=== PATIENT | female | born 1975 | race Caucasian/White ===

== ENCOUNTER 2021-10-27 07:07 | Inpatient (IN) ==
[2021-10-27 08:32] LABS: Bordetella parapertussis PCR Not Detected (NotDetected); Bordetella pertussis PCR Not Detected (NotDetected); Chlamydia pneumoniae PCR Not Detected (NotDetected); Coronavirus 229E PCR Not Detected (NotDetected); Coronavirus CoV-2 (COVID19)PCR DETECTED (NotDetected); Coronavirus HKU1 PCR Not Detected (NotDetected); Coronavirus NL63 PCR Not Detected (NotDetected); Coronavirus OC43PCR Not Detected (NotDetected); Human Metapneumovirus PCR Not Detected (NotDetected); Influenza A PCR Not Detected (NotDetected); Influenza B PCR Not Detected (NotDetected); Mycoplasma pneumoniae PCR Not Detected (NotDetected); Parainfluenza Virus 1 PCR Not Detected (NotDetected); Parainfluenza Virus 2 PCR Not Detected (NotDetected); Parainfluenza Virus 3 PCR Not Detected (NotDetected); Parainfluenza Virus 4 PCR Not Detected (NotDetected); Respiratory Syncytial VirusPCR Not Detected (NotDetected); Rhinovirus/Enterovirus PCR Not Detected (NotDetected)
[2021-10-27 08:39] LABS: Adenovirus PCR Not Detected (NotDetected)
[2021-10-27] MEDS ORDERED: ONDANSETRON INJ 2 MG/ML 2 ML VIAL IV STA (09:04)
[2021-10-27] MEDS ORDERED: SODIUM CHLORIDE 0.9% 500 ML IV ONE (09:04)
--- NOTE | 2021-10-27 09:52 | Emergency Department Note ---
History of Present Illness General Chief complaint: Cough Stated complaint: POSSIBLE COVID, BACK PAIN RAIDIATING DOWN LEGS Time Seen by Provider: 10/27/21 08:43 Source: patient Mode of arrival: ambulatory Limitations: no limitations History of Present Illness Maximum Pain Intensity: 4 This patient is a 46-year-old female who presents to the emergency department for evaluation of flulike symptoms which started 5 days ago. Patient states that she has been caring for her parents who are both COVID-19 positive. She initially developed loss of taste and smell 5 days ago. She has since developed cough, shortness of breath, vomiting, diarrhea, and body aches, especially in her hips and legs. She has had fevers. Patient has not been vaccinated against COVID-19. Home Medications Medication Instructions Recorded Confirmed Type hydrochlorothiazide 25 mg tablet 25 mg PO DAILY 10/27/21 10/27/21 History omeprazole magnesium 20 mg 20 mg PO DAILY 10/27/21 10/27/21 History tablet,delayed release (Prilosec OTC) sertraline 100 mg tablet 100 mg PO DAILY 10/27/21 10/27/21 History valsartan 160 mg tablet 160 mg PO DAILY 10/27/21 10/27/21 History Allergies Allergy/AdvReac Type Severity Reaction Status Date / Time No Known Allergies Allergy Unverified 10/27/21 10:19 Past Med/Surg History Medical History Hypertension Social History Smoking Status: Never smoker Feels Safe at Home: Yes Review of Systems A total of 10 systems reviewed and were otherwise negative Physical Exam Vital Signs Vital Signs - 24 hr 10/27/21 07:17 10/27/21 10:14 10/27/21 11:00 Temperature 37.5 C Temperature Source Temporal Artery Scan Pulse Rate 104 H 85 Pulse Rate [Apical] 89 Pulse Rhythm Regular Pulse Strength Normal Respiratory Rate 20 22 Respiratory Depth Normal Respiratory Pattern Regular Blood Pressure 148/77 H Blood Pressure [Right Arm] 127/66 Blood Pressure Mean 100 Blood Pressure Mean [Right Arm] 86 Blood Pressure Position Sitting Pulse Oximetry 92 92 92 Oxygen Delivery Method Room Air Nasal Cannula Nasal Cannula Oxygen Flow Rate 2 4 Sepsis Recent Fever Within 48 Hours No Sepsis New/Unexplained Change in Mental Status N/A Sepsis Action Taken by Nursing No Action Required VITALS: Vitals are noted on the nurse's note and reviewed by myself. GENERAL: This is a 46-year-old female, in mild distress. SKIN: The skin was without rashes. EARS: External auditory canals clear, tympanic membranes pearly bethea without erythema or effusion bilaterally. EYES: Pupils equal round and reactive to light and accommodation. NOSE: Patent, turbinates without inflammation or discharge. MOUTH: Mucous membranes moist. Tonsils are not enlarged. Pharynx without erythema or exudate. NECK: Supple without nuchal rigidity. No lymphadenopathy. HEART: Regular rate and rhythm without murmurs gallops or rubs. LUNGS: Lung sounds diminished in bilateral bases. No retractions or accessory muscle use. ABDOMEN: Positive bowel sounds x 4. Soft, nontender to palpation. EXTREMITIES: No edema of the lower extremities. NEURO: Patient was alert and oriented to person place and time. Course Consultations [facility]ations Heparin Sodium (Porcine) (Heparin Sod 5,000 Unit/0.5 Ml Vial) 5,000 units SQ Q8 AZALIA Stop: 11/26/21 13:59 Last Admin: 10/27/21 14:23 Dose: 5,000 units Documented by: [id number] Sertraline HCl (Sertraline Hcl 100 Mg Tablet) 100 mg PO DAILY AZALIA Stop: 11/26/21 11:39 Last Admin: 10/27/21 14:23 Dose: 100 mg Documented by: [id number] Valsartan (Valsartan 80 Mg Tab) 160 mg PO DAILY AZALIA Stop: 11/26/21 11:44 Last Admin: 10/27/21 14:23 Dose: 160 mg Documented by: [id number] Discontinued Medications Dexamethasone Sodium Phosphate (DexamethasonePf 10 Mg/Ml Vial) 6 mg IV NOW ONE Stop: 10/27/21 10:46 Last Admin: 10/27/21 11:38 Dose: 6 mg Documented by: [id number] Furosemide (Furosemide 40 Mg/4 Ml Vial) 40 mg IV ONE ONE Stop: 10/27/21 11:38 Last Admin: 10/27/21 12:24 Dose: 40 mg Documented by: [id number] Sodium Chloride (Nss) 500 mls @ 999 mls/hr IV .Q31M ONE Stop: 10/27/21 09:34 Last Admin: 10/27/21 10:12 Dose: 999 mls/hr Documented by: [id number] Remdesivir 200 mg/ Sodium (Chloride) 250 mls @ 125 mls/hr IV ONE STA; Protocol Stop: 10/27/21 13:35 Last Infusion: 10/27/21 15:31 Dose: 0 mls/hr Documented by: [id number] Admin: 10/27/21 12:24 Dose: 125 mls/hr Documented by: [id number] Potassium Chloride (K Darrel / Wtr) 10 meq in 100 mls @ 100 mls/hr IV Q1H AZALIA Stop: 10/27/21 14:29 Last Infusion: 10/27/21 15:31 Dose: 0 mls/hr Documented by: [id number] Admin: 10/27/21 14:24 Dose: 100 mls/hr Documented by: [id number] Infusion: 10/27/21 13:39 Dose: 100 mls/hr Documented by: [id number] Admin: 10/27/21 12:39 Dose: 100 mls/hr Documented by: [id number] Ondansetron HCl (Ondansetron Inj 2 Mg/Ml 2 Ml Vial) 4 mg IV NOW STA Stop: 10/27/21 09:05 Last Admin: 10/27/21 10:12 Dose: 4 mg Documented by: [id number] Potassium Chloride (Potassium Chloride Crtab 20 Meq Tabcr) 40 meq PO NOW STA Stop: 10/27/21 12:24 Last Admin: 10/27/21 12:39 Dose: 40 meq Documented by: [id number] Medical Decision Making Differential Diagnosis COVID-19, viral syndrome, otitis, pharyngitis, pneumonia, influenza, meningitis, urinary tract infection, sepsis, bacteremia, as well as other pathologies. Home Medications Current Medication List: was personally reviewed by me Laboratory Data Attestation: I reviewed the patient's lab results. Result diagrams: 10/27/21 11:09 10/27/21 11:09 Lab Results 10/27/21 10/27/21 10/27/21 Range/Units 07:22 09:45 09:45 WBC Cancelled RBC Cancelled Hgb Cancelled Hct Cancelled MCV Cancelled MCH Cancelled MCHC Cancelled RDW Std Deviation Cancelled RDW Coeff of Lorraine Cancelled Plt Count Cancelled MPV Cancelled Immature Gran % (Auto) Cancelled Neut % (Auto) Cancelled Lymph % (Auto) Cancelled Dade % (Auto) Cancelled Eos % (Auto) Cancelled Baso % (Auto) Cancelled Neut # (Auto) Cancelled Lymph # (Auto) Cancelled Dade # (Auto) Cancelled Eos # (Auto) Cancelled Baso # (Auto) Cancelled Immature Gran # (Auto) Cancelled Absolute Nucleated RBC Cancelled Nucleated RBC % (auto) Cancelled Neutrophils % (Manual) Cancelled Band Neutrophils % Cancelled Lymphocytes % (Manual) Cancelled Prolymphocyte % Cancelled Reactive Lymphs % (Man) Cancelled Monocytes % (Manual) Cancelled Eosinophils % (Manual) Cancelled Basophils % (Manual) Cancelled Metamyelocytes % (Man) Cancelled Myelocytes % (Man) Cancelled Promyelocytes % (Man) Cancelled Blast Cells % (Manual) Cancelled Plasma Cell % (Manual) Cancelled Other Cells % Cancelled Nucleated RBC % Cancelled Neutrophils # (Manual) Cancelled Band Neutrophils # Cancelled Total Absolute Neuts Cancelled Lymphocytes # (Manual) Cancelled Prolymphocyte # Cancelled Reactive Lymphs # Cancelled Total Abs Lymphocytes Cancelled Monocytes # (Manual) Cancelled Eosinophils # (Manual) Cancelled Basophils # (Manual) Cancelled Metamyelocytes # (Man) Cancelled Myelocytes # (Manual) Cancelled Promyelocytes # (Man) Cancelled Blast Cells # (Man) Cancelled Plasma Cell # (Manual) Cancelled Other Cells # Cancelled Nucleated RBCs # (Man) Cancelled Hypersegmented Neuts Cancelled Hyposegmented Neuts Cancelled Hypogranular Neuts Cancelled Large Granular Lymphs Cancelled # Lrg Granular Lymphs Cancelled Hairy Cells Cancelled Smudge Cells Cancelled Toxic Granulation Cancelled Toxic Vacuolation Cancelled Dohle Bodies Cancelled Kaye Rods Cancelled Platelet Estimate Cancelled Hypogranular Platelets Cancelled Clumped Platelets Cancelled Giant Platelets Cancelled Platelet Satelliting Cancelled RBC Morphology Cancelled Polychromasia Cancelled Hypochromasia Cancelled Poikilocytosis Cancelled Basophilic Stippling Cancelled Anisocytosis Cancelled Microcytosis Cancelled Macrocytosis Cancelled Spherocytes Cancelled Pappenheimer Bodies Cancelled Sickle Cells Cancelled Target Cells Cancelled Tear Drop Cells Cancelled Ovalocytes Cancelled Stomatocytes Cancelled [place] Bodies Cancelled Echinocytes Cancelled Acanthocytes (Spur) Cancelled Rouleaux Cancelled RBC Agglutinates Cancelled Schistocytes Cancelled RBC Morph Comment Cancelled Sezary Cell Cancelled PT (9.0-12.0) Seconds INR (0.9-1.1) Sodium 137 (136-145) mmol/L Potassium (3.5-5.1) mmol/L Chloride 104 (98-107) mmol/L Carbon Dioxide 27 (21-32) mmol/L Anion Gap 6.0 (3-11) BUN 11 (7-18) mg/dl Creatinine 0.82 (0.6-1.2) mg/dl Est Cr Clr Drug Dosing 124.8 ml/min Est GFR ( Amer) 98.1 ml/min Est GFR (Non-Af Amer) 84.6 ml/min BUN/Creatinine Ratio 13.8 (10-20) Glucose 129 H (70-99) mg/dl Calcium 8.8 (8.5-10.1) mg/dl Total Bilirubin 0.6 (0.2-1) mg/dl AST (15-37) U/L ALT 167 H (12-78) Alkaline Phosphatase 90 (45-117) U/L Troponin I < 0.015 (0-0.045) ng/ml Total Protein 7.7 (6.4-8.2) gm/dl Albumin 3.6 (3.4-5.0) gm/dl Globulin 4.1 H (2.5-4.0) gm/dl Albumin/Globulin Ratio 0.9 (0.9-2) Procalcitonin (0-0.5) ng/ml Adenovirus (PCR) Not Detected (NotDetected) Anaplasma Smear Babesia Smear B. pertussis DNA (PCR) Not Detected (NotDetected) B.parapertussis DNA PCR Not Detected (NotDetected) Lyme Disease IgG Ab (Negative) Lyme Disease IgM Ab (Negative) C. pneumoniae DNA (PCR) Not Detected (NotDetected) Coronavirus OC43 (PCR) Not Detected (NotDetected) Coronavirus HKU1 (PCR) Not Detected (NotDetected) Coronavirus 229E (PCR) Not Detected (NotDetected) SARS-CoV-2 (PCR) DETECTED A* (NotDetected) Coronavirus NL63 (PCR) Not Detected (NotDetected) Human Metapneumovir PCR Not Detected (NotDetected) Influenza Type A (PCR) Not Detected (NotDetected) Influenza Type B (PCR) Not Detected (NotDetected) M. pneumoniae (PCR) Not Detected (NotDetected) Parainfluenza 1 (PCR) Not Detected (NotDetected) Parainfluenza 2 (PCR) Not Detected (NotDetected) Parainfluenza 3 (PCR) Not Detected (NotDetected) Parainfluenza 4 (PCR) Not Detected (NotDetected) RSV (PCR) Not Detected (NotDetected) Entero/Rhino (PCR) Not Detected (NotDetected) 10/27/21 10/27/21 10/27/21 Range/Units 11:09 11:09 11:15 WBC 2.44 L RBC 4.43 Hgb 13.0 Hct 37.0 MCV 83.5 MCH 29.3 MCHC 35.1 RDW Std Deviation 42.3 RDW Coeff of Lorraine 13.8 Plt Count 87 L MPV 8.5 Immature Gran % (Auto) 0.0 Neut % (Auto) 67.3 Lymph % (Auto) 26.6 Dade % (Auto) 5.7 Eos % (Auto) 0.0 Baso % (Auto) 0.4 Neut # (Auto) 1.64 Lymph # (Auto) 0.65 L Dade # (Auto) 0.14 Eos # (Auto) 0.00 Baso # (Auto) 0.01 Immature Gran # (Auto) 0.00 Absolute Nucleated RBC Nucleated RBC % (auto) Neutrophils % (Manual) Band Neutrophils % Lymphocytes % (Manual) Prolymphocyte % Reactive Lymphs % (Man) Monocytes % (Manual) Eosinophils % (Manual) Basophils % (Manual) Metamyelocytes % (Man) Myelocytes % (Man) Promyelocytes % (Man) Blast Cells % (Manual) Plasma Cell % (Manual) Other Cells % Nucleated RBC % Neutrophils # (Manual) Band Neutrophils # Total Absolute Neuts Lymphocytes # (Manual) Prolymphocyte # Reactive Lymphs # Total Abs Lymphocytes Monocytes # (Manual) Eosinophils # (Manual) Basophils # (Manual) Metamyelocytes # (Man) Myelocytes # (Manual) Promyelocytes # (Man) Blast Cells # (Man) Plasma Cell # (Manual) Other Cells # Nucleated RBCs # (Man) Hypersegmented Neuts Hyposegmented Neuts Hypogranular Neuts Large Granular Lymphs # Lrg Granular Lymphs Hairy Cells Smudge Cells Toxic Granulation Toxic Vacuolation Dohle Bodies Kaye Rods Platelet Estimate Decreased L Hypogranular Platelets Clumped Platelets Giant Platelets Platelet Satelliting RBC Morphology Polychromasia Hypochromasia Poikilocytosis Basophilic Stippling Anisocytosis Microcytosis Macrocytosis Spherocytes Pappenheimer Bodies Sickle Cells Target Cells Tear Drop Cells Ovalocytes Stomatocytes [place] Bodies Echinocytes Acanthocytes (Spur) Rouleaux RBC Agglutinates Schistocytes RBC Morph Comment Sezary Cell PT (9.0-12.0) Seconds INR (0.9-1.1) Sodium (136-145) mmol/L Potassium 3.0 L (3.5-5.1) mmol/L Chloride (98-107) mmol/L Carbon Dioxide (21-32) mmol/L Anion Gap (3-11) BUN (7-18) mg/dl Creatinine (0.6-1.2) mg/dl Est Cr Clr Drug Dosing ml/min Est GFR ( Amer) ml/min Est GFR (Non-Af Amer) ml/min BUN/Creatinine Ratio (10-20) Glucose (70-99) mg/dl Calcium (8.5-10.1) mg/dl Total Bilirubin (0.2-1) mg/dl AST 157 H (15-37) U/L ALT (12-78) Alkaline Phosphatase (45-117) U/L Troponin I (0-0.045) ng/ml Total Protein (6.4-8.2) gm/dl Albumin (3.4-5.0) gm/dl Globulin (2.5-4.0) gm/dl Albumin/Globulin Ratio (0.9-2) Procalcitonin 0.14 (0-0.5) ng/ml Adenovirus (PCR) (NotDetected) Anaplasma Smear Babesia Smear B. pertussis DNA (PCR) (NotDetected) B.parapertussis DNA PCR (NotDetected) Lyme Disease IgG Ab Negative (Negative) Lyme Disease IgM Ab Negative (Negative) C. pneumoniae DNA (PCR) (NotDetected) Coronavirus OC43 (PCR) (NotDetected) Coronavirus HKU1 (PCR) (NotDetected) Coronavirus 229E (PCR) (NotDetected) SARS-CoV-2 (PCR) (NotDetected) Coronavirus NL63 (PCR) (NotDetected) Human Metapneumovir PCR (NotDetected) Influenza Type A (PCR) (NotDetected) Influenza Type B (PCR) (NotDetected) M. pneumoniae (PCR) (NotDetected) Parainfluenza 1 (PCR) (NotDetected) Parainfluenza 2 (PCR) (NotDetected) Parainfluenza 3 (PCR) (NotDetected) Parainfluenza 4 (PCR) (NotDetected) RSV (PCR) (NotDetected) Entero/Rhino (PCR) (NotDetected) 10/27/21 10/27/21 Range/Units 11:15 11:15 WBC RBC Hgb Hct MCV MCH MCHC RDW Std Deviation RDW Coeff of Lorraine Plt Count MPV Immature Gran % (Auto) Neut % (Auto) Lymph % (Auto) Dade % (Auto) Eos % (Auto) Baso % (Auto) Neut # (Auto) Lymph # (Auto) Dade # (Auto) Eos # (Auto) Baso # (Auto) Immature Gran # (Auto) Absolute Nucleated RBC Nucleated RBC % (auto) Neutrophils % (Manual) Band Neutrophils % Lymphocytes % (Manual) Prolymphocyte % Reactive Lymphs % (Man) Monocytes % (Manual) Eosinophils % (Manual) Basophils % (Manual) Metamyelocytes % (Man) Myelocytes % (Man) Promyelocytes % (Man) Blast Cells % (Manual) Plasma Cell % (Manual) Other Cells % Nucleated RBC % Neutrophils # (Manual) Band Neutrophils # Total Absolute Neuts Lymphocytes # (Manual) Prolymphocyte # Reactive Lymphs # Total Abs Lymphocytes Monocytes # (Manual) Eosinophils # (Manual) Basophils # (Manual) Metamyelocytes # (Man) Myelocytes # (Manual) Promyelocytes # (Man) Blast Cells # (Man) Plasma Cell # (Manual) Other Cells # Nucleated RBCs # (Man) Hypersegmented Neuts Hyposegmented Neuts Hypogranular Neuts Large Granular Lymphs # Lrg Granular Lymphs Hairy Cells Smudge Cells Toxic Granulation Toxic Vacuolation Dohle Bodies Kaye Rods Platelet Estimate Hypogranular Platelets Clumped Platelets Giant Platelets Platelet Satelliting RBC Morphology Polychromasia Hypochromasia Poikilocytosis Basophilic Stippling Anisocytosis Microcytosis Macrocytosis Spherocytes Pappenheimer Bodies Sickle Cells Target Cells Tear Drop Cells Ovalocytes Stomatocytes [place] Bodies Echinocytes Acanthocytes (Spur) Rouleaux RBC Agglutinates Schistocytes RBC Morph Comment Sezary Cell PT 10.1 (9.0-12.0) Seconds INR 1.0 (0.9-1.1) Sodium (136-145) mmol/L Potassium (3.5-5.1) mmol/L Chloride (98-107) mmol/L Carbon Dioxide (21-32) mmol/L Anion Gap (3-11) BUN (7-18) mg/dl Creatinine (0.6-1.2) mg/dl Est Cr Clr Drug Dosing ml/min Est GFR ( Amer) ml/min Est GFR (Non-Af Amer) ml/min BUN/Creatinine Ratio (10-20) Glucose (70-99) mg/dl Calcium (8.5-10.1) mg/dl Total Bilirubin (0.2-1) mg/dl AST (15-37) U/L ALT (12-78) Alkaline Phosphatase (45-117) U/L Troponin I (0-0.045) ng/ml Total Protein (6.4-8.2) gm/dl Albumin (3.4-5.0) gm/dl Globulin (2.5-4.0) gm/dl Albumin/Globulin Ratio (0.9-2) Procalcitonin (0-0.5) ng/ml Adenovirus (PCR) (NotDetected) Anaplasma Smear See Comment Babesia Smear See Comment B. pertussis DNA (PCR) (NotDetected) B.parapertussis DNA PCR (NotDetected) Lyme Disease IgG Ab (Negative) Lyme Disease IgM Ab (Negative) C. pneumoniae DNA (PCR) (NotDetected) Coronavirus OC43 (PCR) (NotDetected) Coronavirus HKU1 (PCR) (NotDetected) Coronavirus 229E (PCR) (NotDetected) SARS-CoV-2 (PCR) (NotDetected) Coronavirus NL63 (PCR) (NotDetected) Human Metapneumovir PCR (NotDetected) Influenza Type A (PCR) (NotDetected) Influenza Type B (PCR) (NotDetected) M. pneumoniae (PCR) (NotDetected) Parainfluenza 1 (PCR) (NotDetected) Parainfluenza 2 (PCR) (NotDetected) Parainfluenza 3 (PCR) (NotDetected) Parainfluenza 4 (PCR) (NotDetected) RSV (PCR) (NotDetected) Entero/Rhino (PCR) (NotDetected) Imaging Data Attestation: I personally reviewed and interpreted this imaging study as follows: Radiologist's Impression: Chest X-Ray 10/27/21 09:04 XR chest 1V portable CLINICAL HISTORY: covid+, sob TECHNIQUE: Single frontal radiograph of the chest was obtained. Comparison: None available at the time of this dictation. FINDINGS: No lines and tubes are seen. The cardiomediastinal silhouette is normal. The lungs are clear. No evidence of pleural effusion or pneumothorax. IMPRESSION: No acute chest disease. ACT 112: Negative or not required by law. Electronically signed by: Kevyn Parnell M.D. 10/27/2021 9:52 AM MDM Narrative Continuous directory clerk: Order was placed for continuous directory clerk. Patient was placed on the directory clerk. Patient was noted to be in sinus tachycardia at an initial rate of 102 bpm. The patient is a 46-year-old female who presents today complaining of flulike symptoms and recent COVID-19 exposure. Patient was found to be positive for COVID-19. Labs reveal a leukopenia and thrombocytopenia consistent with this. Patient was hypoxic at 88% on room air, titrated to 4 L of oxygen via nasal cannula and maintained O2 saturations in the low 90s. She was given 6 mg dexamethasone IV. [facility] the patient for further care. Impression & Plan COVID-19, Acute respiratory failure with hypoxia Discharge Plan Visit Data Chief Complaint: Cough Stated Complaint: POSSIBLE COVID, BACK PAIN RAIDIATING DOWN LEGS ED Provider: Altagracia Gonzáles ED Midlevel Provider: Nichole Granados Discharge Problem: COVID-19, Acute respiratory failure with hypoxia
[2021-10-27 10:39] LABS: Alanine Aminotransferase 167 (12-78); Albumin Globulin Ratio 0.9 (0.9-2); Albumin Level 3.6 gm/dl (3.4-5.0); Alkaline Phosphatase 90 U/L (45-117); BUN Creatinine Ratio 13.8 (10-20); Bilirubin,Total 0.6 mg/dl (0.2-1); Blood Urea Nitrogen 11 mg/dl (7-18); Calcium 8.8 mg/dl (8.5-10.1); Carbon Dioxide 27 mmol/L (21-32); Chloride 104 mmol/L (98-107); Creatinine Clr Calc Pharmacy 124.8 ml/min; Est GFR (African American) 98.1 ml/min; Est GFR (Non-African American) 84.6 ml/min; Globulin 4.1 gm/dl (2.5-4.0); Glucose 129 mg/dl (70-99); Sodium 137 mmol/L (136-145); Total Protein 7.7 gm/dl (6.4-8.2); Troponin I < 0.015 ng/ml (0-0.045)
[2021-10-27] MEDS ORDERED: dexAMETHasone**PF** 10 MG/ML VIAL IV ONE (10:45)
--- NOTE | 2021-10-27 11:34 | History & Physical Report ---
Date of Service October 27, 2021 Assessment & Plan (1) COVID-19: Plan: - Positive on admission (2) Acute respiratory failure with hypoxia: Plan: - Admit to med surg tele - COVID-19 positive - Procalcitonin pending - CXR reviewed: negative, consider CTA of the chest if worsening symptoms - O2 sats - WBC 2.44 - concern for leukopenia, and plt count is 87 - possibly viral but will check tickborn illnesses - Symptom day #6: exposure from family members, unvaccinated. - Will start Remdesivir 200 mg IV x 1 then 100 mg daily therafter, decadron 6 mg IV daily. - Secondary to above, pt is requiring 4 L via NC with sats at 93%, does not wear O2 at baseline. Leukopenia and thrombocytopenia with increased LFT Could be secondary to COVID-19 virus infection Will get Lyme titer anaplasmosis test No current indication to give remdesivir and will monitor LFT LFTs could be elevated due to alcoholism and/or fatty liver disease (3) Morbid obesity with BMI of 45.0-49.9, adult: Plan: -BMI of 49.4, diet and exercise to be encouraged throughout hospital stay (4) Edema of both lower legs: Plan: -History of such, takes HCTZ daily, will give 1 dose of Lasix 40 mg IV here and resume HCTZ tomorrow (5) Hypokalemia: Plan: -3.0 on admission, will replace 40 meq orally and 20 meq IV supplementation, likely secondary to multiple days of diarrhea at home prior to coming to the ER (6) Leukopenia: Plan: - Noted, follow with labs (7) Thrombocytopenia: Plan: - Check tick borne illnesses, lyme, anaplasmosis - Possibly could be viral secondary to acute covid infection (8) Elevated transaminase level: Plan: -AST is 157, ALT is 167, total bilirubin is stable at 0.6, possibly secondary to acute inflammation -Trend with a.m. LFTs -patient with nausea and vomiting and lower back pain, consider obtaining RUQ US - pt denies abdominal pain on admission and has been tolerating small amounts of po intake. - Noted low plt count, will check coag studies - Consider GI consultation pending results DVT PPx: - teds, scds, heparin subq CODE: Full code Dispo: From home, likely to remain in the hospital x 2 days History of Present Illness Chief Complaint: Cough Primary Care Provider: NO PCP This is a 46 Yo F with PMHx of HTN and morbid obesity with BMI of 49.4. She presents to the hospital this morning due to worsening cough. She states "I think would be better" - reports having a fever, cough, sputum which is green, weakness, vomiting, pain in lower back down to her legs since last Wednesday when symptoms started. She does not wear any O2 at baseline at home. She has been using mucinex, tylenol, over the counter medications. She lives at home with her daughter who is not symptomatic. Her mother was recently admitting in the hospital with C[facility], her father was positive but was living with her at home and she has been caring for both of them herself but they are now feeling better. Pt is not vaccinated and neither were her family members. Her daughter at home is also not vaccinated. She has NOT taken her home med ications this morning. Allergies Allergy/AdvReac Type Severity Reaction Status Date / Time No Known Allergies Allergy Unverified 10/27/21 10:19 Home Medications Medication Instructions Recorded Confirmed Type hydrochlorothiazide 25 mg tablet 25 mg PO DAILY 10/27/21 10/27/21 History omeprazole magnesium 20 mg 20 mg PO DAILY 10/27/21 10/27/21 History tablet,delayed release (Prilosec OTC) sertraline 100 mg tablet 100 mg PO DAILY 10/27/21 10/27/21 History valsartan 160 mg tablet 160 mg PO DAILY 10/27/21 10/27/21 History Past Med/Surg History Medical History Hypertension Social History Smoking Status: Never smoker Feels Safe at Home: Yes Review of Systems Review of Systems: Constitutional: + fever, sweats and chills Eyes: No diplopia, no worsening or blurred vision ENT: normal hearing, no trouble swallowing Respiratory: + cough, sputum, dyspnea at rest and on exertion Cardiovascular: No chest pain, tightness or palpitations Abdomen: No pain, + nausea, + vomiting, + diarrhea, no constipation Musculoskeletal: No joint pain, calf pain, + chronic BLE swelling Neurologic: + generalized weakness, no numbness/tingling, or balance problems Psychiatric: + hx anxiety and depression on sertraline Skin: No rash or itch Physical Exam Physical Exam: Please refer to attending addendum as I did not see the patient in person due to being COVID-19 positive. Physical exam is done by Dr. Amador Lying in bed comfortably Constitutional: well developed, well nourished, + ill appearing and + obese Eyes: PERRL, conjunctivae normal, anicteric sclerae ENMT: external ear and nose normal, oropharynx normal Neck: trachea midline, no thyromegaly Respiratory: + respiratory distress (Minimal distress at rest) Auscultation: + diminished lung sounds and + crackles (Minimal crackles at the bases) Cardiovascular: Rate/Rhythm: regular rate and regular rhythm; not tachycardic Heart Sounds: normal S1 and normal S2; no murmur Extremities: + edema (Trace edema bilaterally) Gastrointestinal (Abdomen): Inspection/Auscultation: normal bowel sounds; abdomen not distended Percussion/Palpation: abdomen soft; abdomen nontender Musculoskeletal: No acute arthritis in any joint Skin: Does not have any skin rash Neurologic: Alert, awake and oriented x3. No focal sensory and motor deficit appreciated Psychiatric: A+Ox3, euthymic affect Lymphatic: no cervical or axillary lymphadenopathy Results & Data Results & Data ([facility]) Vital Signs (Past 12 Hours) Vital Signs Temp Pulse Pulse Resp BP BP Pulse Ox 10/27/21 11:00 92 10/27/21 10:14 85 89 22 127/66 92 10/27/21 07:17 37.5 C 104 H 20 148/77 H 92 Laboratory Results 10/27/21 10/27/21 10/27/21 09:45 09:45 07:22 WBC Cancelled RBC Cancelled Hgb Cancelled Hct Cancelled MCV Cancelled MCH Cancelled MCHC Cancelled RDW Std Deviation Cancelled RDW Coeff of Lorraine Cancelled Plt Count Cancelled MPV Cancelled Immature Gran % (Auto) Cancelled Neut % (Auto) Cancelled Lymph % (Auto) Cancelled [place] % (Auto) Cancelled Eos % (Auto) Cancelled Baso % (Auto) Cancelled Neut # (Auto) Cancelled Lymph # (Auto) Cancelled [place] # (Auto) Cancelled Eos # (Auto) Cancelled Baso # (Auto) Cancelled Immature Gran # (Auto) Cancelled Absolute Nucleated RBC Cancelled Nucleated RBC % (auto) Cancelled Neutrophils % (Manual) Cancelled Band Neutrophils % Cancelled Lymphocytes % (Manual) Cancelled Prolymphocyte % Cancelled Reactive Lymphs % (Man) Cancelled Monocytes % (Manual) Cancelled Eosinophils % (Manual) Cancelled Basophils % (Manual) Cancelled Metamyelocytes % (Man) Cancelled Myelocytes % (Man) Cancelled Promyelocytes % (Man) Cancelled Blast Cells % (Manual) Cancelled Plasma Cell % (Manual) Cancelled Other Cells % Cancelled Nucleated RBC % Cancelled Neutrophils # (Manual) Cancelled Band Neutrophils # Cancelled Total Absolute Neuts Cancelled Lymphocytes # (Manual) Cancelled Prolymphocyte # Cancelled Reactive Lymphs # Cancelled Total Abs Lymphocytes Cancelled Monocytes # (Manual) Cancelled Eosinophils # (Manual) Cancelled Basophils # (Manual) Cancelled Metamyelocytes # (Man) Cancelled Myelocytes # (Manual) Cancelled Promyelocytes # (Man) Cancelled Blast Cells # (Man) Cancelled Plasma Cell # (Manual) Cancelled Other Cells # Cancelled Nucleated RBCs # (Man) Cancelled Hypersegmented Neuts Cancelled Hyposegmented Neuts Cancelled Hypogranular Neuts Cancelled Large Granular Lymphs Cancelled # Lrg Granular Lymphs Cancelled Hairy Cells Cancelled Smudge Cells Cancelled Toxic Granulation Cancelled Toxic Vacuolation Cancelled Dohle Bodies Cancelled Kaye Rods Cancelled Platelet Estimate Cancelled Hypogranular Platelets Cancelled Clumped Platelets Cancelled Giant Platelets Cancelled Platelet Satelliting Cancelled RBC Morphology Cancelled Polychromasia Cancelled Hypochromasia Cancelled Poikilocytosis Cancelled Basophilic Stippling Cancelled Anisocytosis Cancelled Microcytosis Cancelled Macrocytosis Cancelled Spherocytes Cancelled Pappenheimer Bodies Cancelled Sickle Cells Cancelled Target Cells Cancelled Tear Drop Cells Cancelled Ovalocytes Cancelled Stomatocytes Cancelled Sánchez-Gem Bodies Cancelled Echinocytes Cancelled Acanthocytes (Spur) Cancelled Rouleaux Cancelled RBC Agglutinates Cancelled Schistocytes Cancelled RBC Morph Comment Cancelled Sezary Cell Cancelled Sodium 137 Potassium Chloride 104 Carbon Dioxide 27 Anion Gap 6.0 BUN 11 Creatinine 0.82 Est Cr Clr Drug Dosing 124.8 Est GFR ( Amer) 98.1 Est GFR (Non-Af Amer) 84.6 BUN/Creatinine Ratio 13.8 Glucose 129 H Calcium 8.8 Total Bilirubin 0.6 AST ALT 167 H Alkaline Phosphatase 90 Troponin I < 0.015 Total Protein 7.7 Albumin 3.6 Globulin 4.1 H Albumin/Globulin Ratio 0.9 Adenovirus (PCR) Not Detected B. pertussis DNA (PCR) Not Detected B.parapertussis DNA PCR Not Detected C. pneumoniae DNA (PCR) Not Detected Coronavirus OC43 (PCR) Not Detected Coronavirus HKU1 (PCR) Not Detected Coronavirus 229E (PCR) Not Detected SARS-CoV-2 (PCR) DETECTED A* Coronavirus NL63 (PCR) Not Detected Human Metapneumovir PCR Not Detected Influenza Type A (PCR) Not Detected Influenza Type B (PCR) Not Detected M. pneumoniae (PCR) Not Detected Parainfluenza 1 (PCR) Not Detected Parainfluenza 2 (PCR) Not Detected Parainfluenza 3 (PCR) Not Detected Parainfluenza 4 (PCR) Not Detected RSV (PCR) Not Detected Entero/Rhino (PCR) Not Detected Diagnostic Findings Chest X-Ray 10/27/21 09:04 XR chest 1V portable CLINICAL HISTORY: covid+, sob TECHNIQUE: Single frontal radiograph of the chest was obtained. Comparison: None available at the time of this dictation. FINDINGS: No lines and tubes are seen. The cardiomediastinal silhouette is normal. The lungs are clear. No evidence of pleural effusion or pneumothorax. IMPRESSION: No acute chest disease. ACT 112: Negative or not required by law. Electronically signed by: Kevyn Parnell M.D. 10/27/2021 9:52 AM ECG Additional Comments: 27-OCT-2021 10:07:32 [facility]-EDSTAT ROUTINE RETRIEVAL Normal sinus rhythm Inferior infarct , age undetermined Anterior infarct , age undetermined Abnormal ECG No previous ECGs available 25mm/s 10mm/mV 150Hz 9.0.9 12SL 241 DINESH: 13 Referred by: REFERRED SELF Unconfirmed Vent. rate 86 BPM RI interval 166 ms QRS duration 92 ms QT/QTc 372/445 ms Code Status & VTE Plan Code Status Full code -discussed with the patient at bedside Supervising Physician Co-Signing Physician Notes Attending addendum: The patient was seen and examined in emergency room She has been having symptoms of Covid with cough, shortness of breath, nausea vomiting diarrhea and body aches since Wednesday last She is not vaccinated and has been exposed to her parents who had Covid Has minimal shortness of breath at rest On examination Remains hemodynamically stable and physical exam as above Her admission labs, imaging studies reviewed Will start remdesivir and dexamethasone for COVID-19 virus infection We will have supportive care with cough suppressants and use of flutter valve and spirometry Proning as needed Agree with assessment and plan as outlined above by FRACISCO Vee Dr
[2021-10-27] MEDS ORDERED: REMDESIVIR 200 MG in SODIUM CHLORIDE 0.9% 210 ML IV STA (11:36)
[2021-10-27] MEDS ORDERED: FUROSEMIDE 40 MG/4 ML VIAL IV ONE (11:37)
[2021-10-27] MEDS ORDERED: POTASSIUM CHLORIDE CRTAB 20 MEQ TABCR PO STA ×2 (11:55→12:23)
[2021-10-27 12:05] LABS: Basophils # (auto) 0.01 K/uL (0-0.2); Basophils % (auto) 0.4 %; Lymphocytes # (auto) 0.65 K/uL (1.2-3.4); Lymphocytes % (auto) 26.6 %; Mean Corpuscular Hemoglobin 29.3 pg (25-34); Mean Corpuscular Hgb Conc 35.1 g/dL (32-36); Mean Corpuscular Volume 83.5 fL (80-100); Mean Platelet Volume 8.5 fL (7.4-10.4); Monocytes # (auto) 0.14 K/uL (0.11-0.59); Monocytes % (auto) 5.7 %; Neutrophils # (auto) 1.64 K/uL (1.4-6.5); Neutrophils % (auto) 67.3 %; Platelet Count 87 K/uL (130-400); Platelet Estimate Decreased (Normal); RDW Coefficient of Variation 13.8 % (11.5-14.5); RDW Standard Deviation 42.3 fL (36.4-46.3); Red Blood Count 4.43 M/uL (4.2-5.4); White Blood Count 2.44 K/uL (4.8-10.8)
[2021-10-27] MEDS: POTASSIUM CHLORIDE / WTR 10 MEQ/100 ML PLCT IV SCH ×2 (12:39→14:24)
[2021-10-27 13:21] LABS: Prothrombin Time 10.1 Seconds (9.0-12.0)
[2021-10-27 13:38] LABS: Procalcitonin 0.14 ng/ml (0-0.5)
[2021-10-27 13:52] LABS: Lyme Ab IgG w/WB Rflx Negative (Negative); Lyme Ab IgM w/WB Rflx Negative (Negative)
[2021-10-27] MEDS: SERTRALINE HCL 100 MG TABLET PO SCH (14:23)
[2021-10-27] MEDS: VALSARTAN 80 MG TAB PO SCH (14:23)
[2021-10-27] MEDS: HEPARIN SOD 5,000 UNIT/0.5 ML VIAL SQ SCH ×2 (14:23→22:36)
[2021-10-27] MEDS ORDERED: ONDANSETRON INJ 2 MG/ML 2 ML VIAL IV PRN (15:58)
--- NOTE | 2021-10-27 16:00 | Electrocardiogram Report ---
Test Reason : Blood Pressure : / mmHG Vent. Rate : 086 BPM Atrial Rate : 086 BPM P-R Int : 166 ms QRS Dur : 092 ms QT Int : 372 ms P-R-T Axes : 008 -19 058 degrees QTc Int : 445 ms Normal sinus rhythm Inferior infarct , age undetermined Anterior infarct , age undetermined Abnormal ECG No previous ECGs available Confirmed by Josemanuel Clark ([id number]) on 10/27/2021 4:00:06 PM Referred By: REFERRED SELF Confirmed By:Josemanuel Clark
[2021-10-27] MEDS: BENZONATATE 100 MG CAPSULE PO SCH ×2 (17:46→20:34)
[2021-10-27] MEDS: SODIUM CHLORIDE 0.9% 10ML FLUSH IV SCH (17:47)
[2021-10-27] MEDS: ALBUTEROL HFA 8 GM INHALER INH SCH (17:47)
[2021-10-27] MEDS: ACETAMINOPHEN 325 MG TAB PO PRN (18:41)
[2021-10-27] MEDS ORDERED: ALBUTEROL HFA 8 GM INHALER INH SCH (19:00)
[2021-10-27] MEDS: guaiFENesin 600 MG TABCR PO SCH (20:34)
[2021-10-28 05:01] LABS: Hematocrit (blood only) 38.9 % (37-47); Hemoglobin 13.5 g/dL (12.0-16.0); Mean Corpuscular Hemoglobin 29.4 pg (25-34); Mean Corpuscular Hgb Conc 34.7 g/dL (32-36); Mean Corpuscular Volume 84.7 fL (80-100); Mean Platelet Volume 8.8 fL (7.4-10.4); Platelet Count 103 K/uL (130-400); RDW Coefficient of Variation 14.2 % (11.5-14.5); RDW Standard Deviation 44.5 fL (36.4-46.3); Red Blood Count 4.59 M/uL (4.2-5.4); White Blood Count 3.52 K/uL (4.8-10.8)
[2021-10-28 05:20] LABS: Albumin Level 3.5 gm/dl (3.4-5.0); BUN Creatinine Ratio 19.3 (10-20); Calcium 8.6 mg/dl (8.5-10.1); Creatinine Clr Calc Pharmacy 144.1 ml/min; Est GFR (African American) 116.7 ml/min; Est GFR (Non-African American) 100.7 ml/min; Potassium 3.3 mmol/L (3.5-5.1)
[2021-10-28 05:25] LABS: Albumin Globulin Ratio 0.9 (0.9-2); Bilirubin,Total 0.6 mg/dl (0.2-1); Globulin 3.8 gm/dl (2.5-4.0); Total Protein 7.3 gm/dl (6.4-8.2)
[2021-10-28] MEDS: HEPARIN SOD 5,000 UNIT/0.5 ML VIAL SQ SCH ×2 (06:20→13:34)
[2021-10-28] MEDS: ALBUTEROL HFA 8 GM INHALER INH SCH ×4 (06:21→19:56)
[2021-10-28] MEDS: ACETAMINOPHEN 325 MG TAB PO PRN (06:32)
[2021-10-28] MEDS: VALSARTAN 80 MG TAB PO SCH (07:30)
[2021-10-28] MEDS: SERTRALINE HCL 100 MG TABLET PO SCH (07:31)
[2021-10-28] MEDS: PANTOprazole 40 MG TAB PO SCH (07:31)
[2021-10-28] MEDS: hydroCHLOROthiazide 25 MG TAB PO SCH (07:32)
[2021-10-28] MEDS: guaiFENesin 600 MG TABCR PO SCH ×2 (07:32→19:56)
[2021-10-28] MEDS: dexAMETHasone 6 MG in SYRINGE 0 ML IV SCH (07:34)
[2021-10-28] MEDS: BENZONATATE 100 MG CAPSULE PO SCH ×3 (07:34→19:56)
[2021-10-28] MEDS ORDERED: POTASSIUM CHLORIDE CRTAB 20 MEQ TABCR PO ONE (11:02)
[2021-10-28] MEDS: REMDESIVIR 100 MG in SODIUM CHLORIDE 0.9% 230 ML IV SCH (12:18)
[2021-10-28] MEDS: SODIUM CHLORIDE 0.9% 10ML FLUSH IV SCH (15:11)
--- NOTE | 2021-10-28 16:36 | Hospitalist Progress Note ---
Date of Service October 28, 2021 Assessment & Plan (1) COVID-19: Plan: - Positive on admission (2) Acute respiratory failure with hypoxia: Plan: Acute respiratory failure with hypoxia COVID-19 infection -CXR:No acute chest disease. Continue remdesivir, dexamethasone Check CRP Normal procalcitonin Continue supplemental oxygen as needed Nebs, Lasix as needed Encourage to prone Monitor LFTs Leukopenia and thrombocytopenia with increased LFT Could be secondary to COVID-19 virus infection Lyme screen negative No evidence of intracytoplasmic neutrophilic inclusions to suggest anaplasmosis Hematochezia Chronic diarrhea H/O hemorrhoids as per patient Hold SQ heparin Check stool for C. difficile Consider GI evaluation if needed Monitor CBC (3) Morbid obesity with BMI of 45.0-49.9, adult: Plan: -BMI of 49.4, diet and exercise to be encouraged throughout hospital stay (4) Edema of both lower legs: Plan: Continue HCTZ (5) Hypokalemia: Plan: Likely secondary to GI losses, diuretics Replace electrolytes as needed (6) Leukopenia: Plan: As above (7) Thrombocytopenia: Plan: As above (8) Elevated transaminase level: Plan: Transaminitis likely secondary to Covid infection Monitor LFTs Patient denies any abdominal pain Consider further evaluation if needed DVT Px: SCDs Re: Hematochezia CODE STATUS: Full code Admission and Anticipated Discharge Date Admission Date: October 27, 2021 Subjective Patient is seen and examined bedside States having dry cough Less dyspnea today Also reports chronic bleeding per rectum, diarrhea which she attributes to hemorrhoids Intermittent dizziness Offers no other complaints Review of Systems Review of Systems: All systems reviewed & are unremarkable except as noted in Subjective Physical Exam Physical Exam: Physical Exam: Vitals signs as noted above General Appearance: Morbidly obese, no apparent distress Head: normocephalic, Atraumatic Eyes: normal inspection, EOMI Neck: supple, Trachea midline Respiratory/Chest: Decreased breath sounds, CTA Cardiovascular: S1, S2, No murmur Abdomen/GI:Soft, Non tender, Bowel sounds present Extremities/Musculoskeletal:normal inspection, no edema Neurologic/Psych:AAOX3, grossly no focal neurological deficits Skin: normal color, warm Results & Data Results & Data ([facility]) Vital Signs (Past 12 Hours) Vital Signs Pulse Resp BP Pulse Ox Pulse Ox 10/28/21 13:40 87 24 107/65 91 10/28/21 10:00 93 10/28/21 06:29 84 21 111/73 91 Laboratory Results Short CBC 10/28/21 Range/Units 04:46 WBC 3.52 L (4.8-10.8) K/uL Hgb 13.5 (12.0-16.0) g/dL Hct 38.9 (37-47) % Plt Count 103 L (130-400) K/uL BMP 10/28/21 04:46 Sodium 137 Potassium 3.3 L Chloride 104 Carbon Dioxide 28 BUN 14 Creatinine 0.71 Glucose 114 H Calcium 8.6 Liver Function 10/28/21 Range/Units 04:46 Total Bilirubin 0.6 (0.2-1) mg/dl AST 125 H (15-37) U/L ALT 137 H (12-78) Alkaline Phosphatase 83 (45-117) U/L Albumin 3.5 (3.4-5.0) gm/dl
[2021-10-29 05:33] LABS: Hematocrit (blood only) 39.7 % (37-47); Hemoglobin 13.9 g/dL (12.0-16.0); Mean Corpuscular Hemoglobin 29.4 pg (25-34); Mean Corpuscular Volume 83.9 fL (80-100); Mean Platelet Volume 8.5 fL (7.4-10.4); Platelet Count 112 K/uL (130-400); RDW Coefficient of Variation 14.2 % (11.5-14.5); RDW Standard Deviation 43.7 fL (36.4-46.3); Red Blood Count 4.73 M/uL (4.2-5.4); White Blood Count 4.49 K/uL (4.8-10.8)
[2021-10-29 06:04] LABS: Albumin Globulin Ratio 0.9 (0.9-2); Albumin Level 3.4 gm/dl (3.4-5.0); BUN Creatinine Ratio 25.2 (10-20); Bilirubin,Total 0.5 mg/dl (0.2-1); Calcium 8.7 mg/dl (8.5-10.1); Creatinine Clr Calc Pharmacy 150.5 ml/min; Est GFR (African American) 119.9 ml/min; Est GFR (Non-African American) 103.4 ml/min; Globulin 3.8 gm/dl (2.5-4.0); Magnesium 2.2 mg/dl (1.8-2.4); Phosphorus 2.2 mg/dl (2.5-4.9); Potassium 2.9 mmol/L (3.5-5.1); Total Protein 7.2 gm/dl (6.4-8.2)
[2021-10-29 06:05] LABS: C Reactive Protein 0.58 mg/dl (0-0.29)
[2021-10-29] MEDS: ALBUTEROL HFA 8 GM INHALER INH SCH ×3 (07:55→14:33)
[2021-10-29] MEDS: dexAMETHasone 6 MG in SYRINGE 0 ML IV SCH (10:12)
[2021-10-29] MEDS: BENZONATATE 100 MG CAPSULE PO SCH ×3 (10:12→20:00)
[2021-10-29] MEDS: guaiFENesin 600 MG TABCR PO SCH ×2 (10:12→20:00)
[2021-10-29] MEDS: hydroCHLOROthiazide 25 MG TAB PO SCH (10:13)
[2021-10-29] MEDS: VALSARTAN 80 MG TAB PO SCH (10:13)
[2021-10-29] MEDS: PANTOprazole 40 MG TAB PO SCH (10:13)
[2021-10-29] MEDS: SERTRALINE HCL 100 MG TABLET PO SCH (10:13)
[2021-10-29] MEDS: REMDESIVIR 100 MG in SODIUM CHLORIDE 0.9% 230 ML IV SCH (11:41)
[2021-10-29] MEDS: SODIUM CHLORIDE 0.9% 10ML FLUSH IV SCH (12:59)
[2021-10-29 13:06] LABS: Cdiff Antigen Negative; Cdiff Toxin A+B Negative Cdiff Toxin (Negative)
[2021-10-29] MEDS ORDERED: ALBUTEROL HFA 8 GM INHALER INH PRN (14:59)
[2021-10-29] MEDS ORDERED: POTASSIUM CHLORIDE CRTAB 20 MEQ TABCR PO STA (15:41)
--- NOTE | 2021-10-29 15:44 | Hospitalist Progress Note ---
Date of Service October 29, 2021 Assessment & Plan (1) COVID-19: Plan: - Positive on admission (2) Acute respiratory failure with hypoxia: Plan: Acute respiratory failure with hypoxia COVID-19 infection -CXR:No acute chest disease. Continue remdesivir, dexamethasone CRP 0.58 Normal procalcitonin Continue supplemental oxygen as needed - currently on 4L Nebs, Lasix as needed Encourage to prone Monitor LFTs LFTs trending down Leukopenia and thrombocytopenia with increased LFT Could be secondary to COVID-19 virus infection Lyme screen negative No evidence of intracytoplasmic neutrophilic inclusions to suggest anaplasmosis Hematochezia Chronic diarrhea H/O hemorrhoids as per patient Reports having colonoscopy several months ago, and diagnosed w/ hemorrhoids Hold SQ heparin Check stool for C. difficile - c. diff gene positive, c. diff tox negative Start empiric PO vanco Cont. to closely monitor Consider GI evaluation if needed Monitor CBC (3) Morbid obesity with BMI of 45.0-49.9, adult: Plan: -BMI of 49.4, counseling provided (4) Edema of both lower legs: Plan: Continue HCTZ (5) Hypokalemia: Plan: Likely secondary to GI losses, diuretics Replace electrolytes as needed (6) Leukopenia: Plan: As above (7) Thrombocytopenia: Plan: As above (8) Elevated transaminase level: Plan: Transaminitis likely secondary to Covid infection Monitor LFTs LFTs trending down Patient denies any abdominal pain Consider further evaluation if needed DVT Px: SCDs Re: Hematochezia CODE STATUS: Full code Admission and Anticipated Discharge Date Admission Date: October 27, 2021 Subjective Patient seen for shortness of breath, due to Covid pneumonia She is sitting up in a chair in NAD, on 4L O2 via NC Reports feeling better, able to speak in full sentences w/o difficulty No chest pain, abd. pain, n/v Also reports chronic mild bleeding per rectum (had colonoscopy couple of months ago and was diagnosed w/ hemorrhoids) + diarrhea c. diff gene positive, c. diff tox negative Review of Systems Review of Systems: All systems reviewed & are unremarkable except as noted in Subjective Physical Exam Physical Exam: General Appearance: Morbidly obese F in NAD, pleasant, conversing easily Head: normocephalic, Atraumatic Eyes: normal inspection, EOMI Neck: supple Respiratory/Chest: Decreased breath sounds, CTA Cardiovascular: S1, S2, No murmur Abdomen/GI:Soft, Non tender, Bowel sounds present Extremities/Musculoskeletal:normal inspection, no edema Neurologic/Psych:AAOX3, speech fluent, moves extremities Skin: normal color, warm Results & Data Results & Data ([facility]) Vital Signs (Past 12 Hours) Vital Signs Temp Pulse Pulse Resp BP BP Pulse Ox 10/29/21 14:33 81 18 92 10/29/21 14:00 75 24 124/79 93 10/29/21 12:00 86 25 H 91 10/29/21 10:00 79 22 124/76 91 10/29/21 08:00 80 92 10/29/21 07:55 73 18 93 10/29/21 06:00 66 18 94 10/29/21 05:04 36.8 C 71 22 122/75 94 10/29/21 04:00 67 20 93 Pulse Ox 10/29/21 14:33 10/29/21 14:00 10/29/21 12:00 10/29/21 10:00 91 10/29/21 08:00 10/29/21 07:55 10/29/21 06:00 10/29/21 05:04 10/29/21 04:00 Laboratory Results 10/29/21 10/29/21 10/29/21 Range/Units Unknown 05:03 05:03 WBC 4.49 L (4.8-10.8) K/uL RBC 4.73 (4.2-5.4) M/uL Hgb 13.9 (12.0-16.0) g/dL Hct 39.7 (37-47) % MCV 83.9 (80-100) fL MCH 29.4 (25-34) pg MCHC 35.0 (32-36) g/dL RDW Std Deviation 43.7 (36.4-46.3) fL RDW Coeff of Lorraine 14.2 (11.5-14.5) % Plt Count 112 L (130-400) K/uL MPV 8.5 (7.4-10.4) fL Sodium 138 (136-145) mmol/L Potassium 2.9 L (3.5-5.1) mmol/L Chloride 105 (98-107) mmol/L Carbon Dioxide 26 (21-32) mmol/L Anion Gap 7.0 (3-11) BUN 17 (7-18) mg/dl Creatinine 0.68 (0.6-1.2) mg/dl Est Cr Clr Drug Dosing 150.5 ml/min Est GFR ( Amer) 119.9 ml/min Est GFR (Non-Af Amer) 103.4 ml/min BUN/Creatinine Ratio 25.2 H (10-20) Glucose 110 H (70-99) mg/dl Calcium 8.7 (8.5-10.1) mg/dl Phosphorus 2.2 L (2.5-4.9) mg/dl Magnesium 2.2 (1.8-2.4) mg/dl Total Bilirubin 0.5 (0.2-1) mg/dl AST 106 H (15-37) U/L ALT 119 H (12-78) Alkaline Phosphatase 81 (45-117) U/L C-Reactive Protein 0.58 H (0-0.29) mg/dl Total Protein 7.2 (6.4-8.2) gm/dl Albumin 3.4 (3.4-5.0) gm/dl Globulin 3.8 (2.5-4.0) gm/dl Albumin/Globulin Ratio 0.9 (0.9-2) Stl C. diff Tox B Gene Positive Cdiff Gene H (Neg) Stl C.difficile Tox A&B Negative Cdiff Toxin (Negative) Medications Administered Current Inpatient Medications Acetaminophen (Acetaminophen 325 Mg Tab) 650 mg PO Q4H PRN PRN Reason: Moderate Pain Stop: 11/26/21 15:57 Last Admin: 10/28/21 06:32 Dose: 650 mg Documented by: Albuterol (Albuterol Hfa 8 Gm Inhaler) 2 puffs INH Q4R PRN PRN Reason: Shortness Of Breath Or Wheezing Stop: 11/28/21 14:58 Benzonatate (Benzonatate 100 Mg Capsule) 100 mg PO TID [facility] Stop: 11/26/21 15:57 Last Admin: 10/29/21 14:56 Dose: 100 mg Documented by: Guaifenesin (Guaifenesin 600 Mg Tabcr) 1,200 mg PO Q12 [facility] Stop: 11/26/21 20:59 Last Admin: 10/29/21 10:12 Dose: 1,200 mg Documented by: Heparin Sodium (Porcine) (Heparin Sod 5,000 Unit/0.5 Ml Vial) 5,000 units SQ Q8 [facility] Stop: 11/26/21 13:59 Last Admin: 10/28/21 13:34 Dose: 5,000 units Documented by: Hydrochlorothiazide (Hydrochlorothiazide 25 Mg Tab) 25 mg PO DAILY [facility] Stop: 11/27/21 08:59 Last Admin: 10/29/21 10:13 Dose: 25 mg Documented by: Remdesivir 100 mg/ Sodium (Chloride) 250 mls @ 250 mls/hr IV DAILY@1200 [facility]; Protocol Stop: 10/31/21 12:59 Last Infusion: 10/29/21 12:58 Dose: Infused Documented by: Dexamethasone 6 mg/ Syringe 1.5 mls @ 1 mls/min IV DAILY [facility] Stop: 11/05/21 09:02 Last Admin: 10/29/21 10:12 Dose: 1 mls/min Documented by: Ondansetron HCl (Ondansetron Inj 2 Mg/Ml 2 Ml Vial) 4 mg IV Q4H PRN PRN Reason: Nausea And Vomiting Stop: 11/26/21 15:57 Pantoprazole Sodium (Pantoprazole 40 Mg Tab) 40 mg PO DAILY [facility] Stop: 11/27/21 08:59 Last Admin: 10/29/21 10:13 Dose: 40 mg Documented by: Potassium Chloride (Potassium Chloride Crtab 20 Meq Tabcr) 40 meq PO NOW [facility] Stop: 10/29/21 15:42 Sertraline HCl (Sertraline Hcl 100 Mg Tablet) 100 mg PO DAILY [facility] Stop: 11/26/21 11:39 Last Admin: 10/29/21 10:13 Dose: 100 mg Documented by: Sodium Chloride (Sodium Chloride 0.9% 10ml Flush) 30 ml IV DAILY@1200 [facility] Stop: 10/31/21 12:01 Last Admin: 10/29/21 12:59 Dose: 30 ml Documented by: Valsartan (Valsartan 80 Mg Tab) 160 mg PO DAILY [facility] Stop: 11/26/21 11:44 Last Admin: 10/29/21 10:13 Dose: 160 mg Documented by:
[2021-10-29] MEDS: POTASSIUM CHLORIDE / WTR 10 MEQ/100 ML PLCT IV SCH ×2 (17:58→19:48)
[2021-10-29] MEDS: VANCOMYCIN HCL 125 MG/2.5ML SOLN PO SCH ×2 (18:57→23:34)
[2021-10-29] MEDS: RASPBERRY SYRUP 5 ML UDP PO SCH ×2 (18:57→23:34)
[2021-10-30] MEDS: VANCOMYCIN HCL 125 MG/2.5ML SOLN PO SCH ×4 (05:10→23:00)
[2021-10-30] MEDS: RASPBERRY SYRUP 5 ML UDP PO SCH ×4 (05:10→23:01)
[2021-10-30 07:25] LABS: Hematocrit (blood only) 39.7 % (37-47); Hemoglobin 13.8 g/dL (12.0-16.0); Mean Corpuscular Hemoglobin 29.4 pg (25-34); Mean Corpuscular Hgb Conc 34.8 g/dL (32-36); Mean Corpuscular Volume 84.6 fL (80-100); Mean Platelet Volume 8.7 fL (7.4-10.4); Platelet Count 130 K/uL (130-400); RDW Coefficient of Variation 14.3 % (11.5-14.5); RDW Standard Deviation 43.9 fL (36.4-46.3); Red Blood Count 4.69 M/uL (4.2-5.4); White Blood Count 4.51 K/uL (4.8-10.8)
[2021-10-30] MEDS: guaiFENesin 600 MG TABCR PO SCH ×2 (07:33→20:14)
[2021-10-30] MEDS: dexAMETHasone 6 MG in SYRINGE 0 ML IV SCH (07:33)
[2021-10-30] MEDS: SERTRALINE HCL 100 MG TABLET PO SCH (07:34)
[2021-10-30] MEDS: BENZONATATE 100 MG CAPSULE PO SCH ×3 (07:35→20:14)
[2021-10-30] MEDS: PANTOprazole 40 MG TAB PO SCH (07:35)
[2021-10-30] MEDS: VALSARTAN 80 MG TAB PO SCH (07:45)
[2021-10-30] MEDS: hydroCHLOROthiazide 25 MG TAB PO SCH (07:45)
[2021-10-30 08:06] LABS: Albumin Level 3.5 gm/dl (3.4-5.0); BUN Creatinine Ratio 24.6 (10-20); Bilirubin,Total 0.8 mg/dl (0.2-1); Calcium 8.9 mg/dl (8.5-10.1); Creatinine Clr Calc Pharmacy 152.7 ml/min; Est GFR (African American) 120.5 ml/min; Est GFR (Non-African American) 103.9 ml/min; Globulin 3.5 gm/dl (2.5-4.0); Magnesium 2.3 mg/dl (1.8-2.4); Phosphorus 2.9 mg/dl (2.5-4.9); Potassium 3.5 mmol/L (3.5-5.1)
[2021-10-30] MEDS ORDERED: POTASSIUM CHLORIDE CRTAB 20 MEQ TABCR PO STA (08:22)
--- NOTE | 2021-10-30 08:25 | Hospitalist Progress Note ---
Date of Service October 30, 2021 Assessment & Plan (1) COVID-19: Plan: - Positive on admission (2) Acute respiratory failure with hypoxia: Plan: Acute respiratory failure with hypoxia COVID-19 infection -CXR:No acute chest disease. Continue remdesivir, dexamethasone CRP 0.58 Normal procalcitonin Continue supplemental oxygen as needed - currently on 3L (down from 4L) Nebs, Lasix as needed Encourage to prone Monitor LFTs LFTs trending down Leukopenia and thrombocytopenia with increased LFT Could be secondary to COVID-19 virus infection Lyme screen negative No evidence of intracytoplasmic neutrophilic inclusions to suggest anaplasmosis Hematochezia Chronic diarrhea H/O hemorrhoids as per patient Reports having colonoscopy several months ago, and diagnosed w/ hemorrhoids Hold SQ heparin Check stool for C. difficile - c. diff gene positive, c. diff tox negative Started empiric PO vanco Cont. to closely monitor Consider GI evaluation if needed Monitor CBC (3) Morbid obesity with BMI of 45.0-49.9, adult: Plan: -BMI of 49.4, counseling provided (4) Edema of both lower legs: Plan: Continue HCTZ (5) Hypokalemia: Plan: Likely secondary to GI losses, diuretics Replace electrolytes as needed (6) Leukopenia: Plan: As above (7) Thrombocytopenia: Plan: As above (8) Elevated transaminase level: Plan: Transaminitis likely secondary to Covid infection Monitor LFTs LFTs trending down Patient denies any abdominal pain Consider further evaluation if needed DVT Px: SCDs Re: Hematochezia Give lovenox today, monitor for signs of bleeding CODE STATUS: Full code Admission and Anticipated Discharge Date Admission Date: October 27, 2021 Subjective Patient seen for shortness of breath, due to Covid pneumonia She is sitting up in a chair in NAD, on 3L O2 via NC Reports feeling better, able to speak in full sentences w/o difficulty No chest pain, abd. pain, n/v Also reports chronic mild bleeding per rectum (had colonoscopy couple of months ago and was diagnosed w/ hemorrhoids) + diarrhea c. diff gene positive, c. diff tox negative Had BM this AM, reports small bloody smear on the surface of stool Review of Systems Review of Systems: All systems reviewed & are unremarkable except as noted in Subjective Physical Exam Physical Exam: General Appearance: Morbidly obese F in NAD, pleasant, conversing easily Head: normocephalic, Atraumatic Eyes: normal inspection, EOMI Neck: supple Respiratory/Chest: Decreased breath sounds, CTA Cardiovascular: S1, S2, No murmur Abdomen/GI:Soft, Non tender, Bowel sounds present Extremities/Musculoskeletal:normal inspection, no edema Neurologic/Psych:AAOX3, speech fluent, moves extremities Skin: normal color, warm Results & Data Results & Data ([facility]) Vital Signs (Past 12 Hours) Vital Signs Pulse 10/30/21 07:11 62 10/29/21 22:18 66 Laboratory Results 10/30/21 10/30/21 10/29/21 Range/Units 06:56 06:56 Unknown WBC 4.51 L (4.8-10.8) K/uL RBC 4.69 (4.2-5.4) M/uL Hgb 13.8 (12.0-16.0) g/dL Hct 39.7 (37-47) % MCV 84.6 (80-100) fL MCH 29.4 (25-34) pg MCHC 34.8 (32-36) g/dL RDW Std Deviation 43.9 (36.4-46.3) fL RDW Coeff of Lorraine 14.3 (11.5-14.5) % Plt Count 130 (130-400) K/uL MPV 8.7 (7.4-10.4) fL Sodium 138 (136-145) mmol/L Potassium 3.5 D (3.5-5.1) mmol/L Chloride 107 (98-107) mmol/L Carbon Dioxide 26 (21-32) mmol/L Anion Gap 5.0 (3-11) BUN 16 (7-18) mg/dl Creatinine 0.67 (0.6-1.2) mg/dl Est Cr Clr Drug Dosing 152.7 ml/min Est GFR ( Amer) 120.5 ml/min Est GFR (Non-Af Amer) 103.9 ml/min BUN/Creatinine Ratio 24.6 H (10-20) Glucose 108 H (70-99) mg/dl Calcium 8.9 (8.5-10.1) mg/dl Phosphorus 2.9 (2.5-4.9) mg/dl Magnesium 2.3 (1.8-2.4) mg/dl Total Bilirubin 0.8 (0.2-1) mg/dl AST 87 H (15-37) U/L ALT 103 H (12-78) Alkaline Phosphatase 76 (45-117) U/L Total Protein 7.0 (6.4-8.2) gm/dl Albumin 3.5 (3.4-5.0) gm/dl Globulin 3.5 (2.5-4.0) gm/dl Albumin/Globulin Ratio 1.0 (0.9-2) Specimen Hemolysis Stl C. diff Tox B Gene Positive Cdiff Gene H (Neg) Stl C.difficile Tox A&B Negative Cdiff Toxin (Negative) Medications Administered Current Inpatient Medications Acetaminophen (Acetaminophen 325 Mg Tab) 650 mg PO Q4H PRN PRN Reason: Moderate Pain Stop: 11/26/21 15:57 Last Admin: 10/28/21 06:32 Dose: 650 mg Documented by: Albuterol (Albuterol Hfa 8 Gm Inhaler) 2 puffs INH Q4R PRN PRN Reason: Shortness Of Breath Or Wheezing Stop: 11/28/21 14:58 Benzonatate (Benzonatate 100 Mg Capsule) 100 mg PO TID [facility] Stop: 11/26/21 15:57 Last Admin: 10/30/21 07:35 Dose: 100 mg Documented by: Guaifenesin (Guaifenesin 600 Mg Tabcr) 1,200 mg PO Q12 [facility] Stop: 11/26/21 20:59 Last Admin: 10/30/21 07:33 Dose: 1,200 mg Documented by: Heparin Sodium (Porcine) (Heparin Sod 5,000 Unit/0.5 Ml Vial) 5,000 units SQ Q8 [facility] Stop: 11/26/21 13:59 Last Admin: 10/28/21 13:34 Dose: 5,000 units Documented by: Hydrochlorothiazide (Hydrochlorothiazide 25 Mg Tab) 25 mg PO DAILY [facility] Stop: 11/27/21 08:59 Last Admin: 10/30/21 07:45 Dose: Not Given Documented by: Remdesivir 100 mg/ Sodium (Chloride) 250 mls @ 250 mls/hr IV DAILY@1200 [facility]; Protocol Stop: 10/31/21 12:59 Last Infusion: 10/29/21 12:58 Dose: Infused Documented by: Dexamethasone 6 mg/ Syringe 1.5 mls @ 1 mls/min IV DAILY [facility] Stop: 11/05/21 09:02 Last Admin: 10/30/21 07:33 Dose: 1 mls/min Documented by: Ondansetron HCl (Ondansetron Inj 2 Mg/Ml 2 Ml Vial) 4 mg IV Q4H PRN PRN Reason: Nausea And Vomiting Stop: 11/26/21 15:57 Pantoprazole Sodium (Pantoprazole 40 Mg Tab) 40 mg PO DAILY [facility] Stop: 11/27/21 08:59 Last Admin: 10/30/21 07:35 Dose: 40 mg Documented by: Potassium Chloride (Potassium Chloride Crtab 20 Meq Tabcr) 40 meq PO NOW STA Stop: 10/30/21 08:23 Raspberry (Raspberry Syrup 5 Ml Udp) 5 ml PO Q6 [facility] Stop: 11/08/21 17:59 Last Admin: 10/30/21 05:10 Dose: 5 ml Documented by: Sertraline HCl (Sertraline Hcl 100 Mg Tablet) 100 mg PO DAILY [facility] Stop: 11/26/21 11:39 Last Admin: 10/30/21 07:34 Dose: 100 mg Documented by: Sodium Chloride (Sodium Chloride 0.9% 10ml Flush) 30 ml IV DAILY@1200 [facility] Stop: 10/31/21 12:01 Last Admin: 10/29/21 12:59 Dose: 30 ml Documented by: Valsartan (Valsartan 80 Mg Tab) 160 mg PO DAILY [facility] Stop: 11/26/21 11:44 Last Admin: 10/30/21 07:45 Dose: Not Given Documented by: Vancomycin HCl (Vancomycin Hcl 125 Mg/2.5ml Soln) 125 mg PO Q6 [facility] Stop: 11/08/21 17:59 Last Admin: 10/30/21 05:10 Dose: 125 mg Documented by:
[2021-10-30 10:39] LABS: Adenovirus F 40/41 PCR Not Detected (NotDetected); Astrovirus PCR Not Detected (NotDetected); Campylobacter PCR Not Detected (NotDetected); Cryptosporidium PCR Not Detected (NotDetected); Cyclospora cayetanensis PCR Not Detected (NotDetected); Entamoeba histolytica PCR Not Detected (NotDetected); Enteroaggregative E.coli(EAEC) Not Detected (NotDetected); Enteropathogenic E.coli (EPEC) Not Detected (NotDetected); Enterotoxigenic E.coli (ETEC) Not Detected (NotDetected); Giardia lamblia PCR Not Detected (NotDetected); Norovirus GI/GII PCR Not Detected (NotDetected); Plesiomonas shigelloides PCR Not Detected (NotDetected); Rotavirus A PCR Not Detected (NotDetected); Salmonella PCR Not Detected (NotDetected); Sapovirus PCR Not Detected (NotDetected); Shiga-like Toxin E.coli (STEC) Not Detected (NotDetected); Shigella/Enteroinvasive E.coli Not Detected (NotDetected); Vibrio cholerae PCR Not Detected (NotDetected); Vibrio species PCR Not Detected (NotDetected); Yersinia enterocolitica PCR Not Detected (NotDetected)
[2021-10-30] MEDS: REMDESIVIR 100 MG in SODIUM CHLORIDE 0.9% 230 ML IV SCH (11:46)
[2021-10-30] MEDS: SODIUM CHLORIDE 0.9% 10ML FLUSH IV SCH (11:48)
[2021-10-30 12:03] LABS: Cdiff Antigen Negative; Cdiff Toxin A+B Negative Cdiff Toxin (Negative)
[2021-10-30 14:06] LABS: Babesia microti DNA Not Detected (Not Detected)
[2021-10-30] MEDS ORDERED: ENOXAPARIN INJ 40 MG/0.4 ML SYR SQ ONE (18:15)
[2021-10-31] MEDS: VANCOMYCIN HCL 125 MG/2.5ML SOLN PO SCH ×3 (06:28→18:30)
[2021-10-31] MEDS: RASPBERRY SYRUP 5 ML UDP PO SCH ×3 (06:28→18:30)
[2021-10-31 07:59] LABS: Hematocrit (blood only) 40.5 % (37-47); Hemoglobin 14.1 g/dL (12.0-16.0); Mean Corpuscular Hemoglobin 29.3 pg (25-34); Mean Corpuscular Hgb Conc 34.8 g/dL (32-36); Mean Platelet Volume 8.6 fL (7.4-10.4); Platelet Count 143 K/uL (130-400); Red Blood Count 4.82 M/uL (4.2-5.4); White Blood Count 5.33 K/uL (4.8-10.8)
--- NOTE | 2021-10-31 08:08 | Hospitalist Progress Note ---
Date of Service October 31, 2021 Assessment & Plan (1) COVID-19: Plan: - Positive on admission (2) Acute respiratory failure with hypoxia: Plan: Acute respiratory failure with hypoxia COVID-19 infection -CXR:No acute chest disease. Continue remdesivir, dexamethasone CRP 0.58 Normal procalcitonin Continue supplemental oxygen as needed - currently on 2L (down from 4L) Nebs, Lasix as needed Encourage to prone Monitor LFTs LFTs trending down Leukopenia and thrombocytopenia with increased LFT Could be secondary to COVID-19 virus infection Lyme screen negative No evidence of intracytoplasmic neutrophilic inclusions to suggest anaplasmosis Hematochezia Chronic diarrhea H/O hemorrhoids as per patient Reports having colonoscopy several months ago, and diagnosed w/ hemorrhoids Hold SQ heparin Check stool for C. difficile - c. diff gene positive, c. diff tox negative Started empiric PO vanco Cont. to closely monitor Consider GI evaluation if needed Monitor CBC (3) Morbid obesity with BMI of 45.0-49.9, adult: Plan: -BMI of 49.4, counseling provided (4) Edema of both lower legs: Plan: Continue HCTZ (5) Hypokalemia: Plan: Likely secondary to GI losses, diuretics Replace electrolytes as needed (6) Leukopenia: Plan: As above (7) Thrombocytopenia: Plan: As above (8) Elevated transaminase level: Plan: Transaminitis likely secondary to Covid infection Monitor LFTs LFTs trending down Patient denies any abdominal pain Consider further evaluation if needed DVT Px: SCDs, lovenox CODE STATUS: Full code Admission and Anticipated Discharge Date Admission Date: October 27, 2021 Subjective Patient seen for shortness of breath, hypoxia due to Covid pneumonia She is sitting up in a chair in NAD, on 2L O2 via NC Reports feeling better, able to speak in full sentences w/o difficulty No chest pain, abd. pain, n/v Had several bowel movements today, not watery, no blood in the stool either Review of Systems Review of Systems: All systems reviewed & are unremarkable except as noted in Subjective Physical Exam Physical Exam: General Appearance: Morbidly obese F in NAD, pleasant, conversing easily Head: normocephalic, Atraumatic Eyes: normal inspection, EOMI Neck: supple Respiratory/Chest: CTAB, no wheezing Cardiovascular: S1, S2, No murmur Abdomen/GI:Soft, Non tender, Bowel sounds present Extremities/Musculoskeletal:normal inspection, no edema Neurologic/Psych:AAOX3, speech fluent, moves extremities Skin: normal color, warm Results & Data Results & Data ([facility]) Vital Signs (Past 12 Hours) Vital Signs Temp Pulse Pulse Resp BP BP Pulse Ox 10/31/21 06:30 36.8 C 71 18 109/71 95 10/31/21 03:43 36.7 C 66 16 114/74 96 10/31/21 02:42 59 L 10/30/21 22:59 36.5 C 62 18 124/75 94 10/30/21 20:10 36.9 C 64 18 98/56 L 95 Laboratory Results 10/31/21 10/31/21 10/27/21 Range/Units 07:38 07:38 11:15 WBC 5.33 (4.8-10.8) K/uL RBC 4.82 (4.2-5.4) M/uL Hgb 14.1 (12.0-16.0) g/dL Hct 40.5 (37-47) % MCV 84.0 (80-100) fL MCH 29.3 (25-34) pg MCHC 34.8 (32-36) g/dL RDW Std Deviation 43.0 (36.4-46.3) fL RDW Coeff of Lorraine 14.0 (11.5-14.5) % Plt Count 143 (130-400) K/uL MPV 8.6 (7.4-10.4) fL Sodium 141 (136-145) mmol/L Potassium 3.5 (3.5-5.1) mmol/L Chloride 108 H (98-107) mmol/L Carbon Dioxide 25 (21-32) mmol/L Anion Gap 7.0 (3-11) BUN 17 (7-18) mg/dl Creatinine 0.67 (0.6-1.2) mg/dl Est Cr Clr Drug Dosing 152.7 ml/min Est GFR ( Amer) 120.5 ml/min Est GFR (Non-Af Amer) 103.9 ml/min BUN/Creatinine Ratio 25.4 H (10-20) Glucose 108 H (70-99) mg/dl Calcium 8.8 (8.5-10.1) mg/dl Phosphorus 2.8 (2.5-4.9) mg/dl Magnesium 2.2 (1.8-2.4) mg/dl Total Bilirubin 1.1 H (0.2-1) mg/dl AST 93 H (15-37) U/L ALT 107 H (12-78) Alkaline Phosphatase 77 (45-117) U/L Total Protein 7.2 (6.4-8.2) gm/dl Albumin 3.6 (3.4-5.0) gm/dl Globulin 3.6 (2.5-4.0) gm/dl Albumin/Globulin Ratio 1.0 (0.9-2) Babesia microti DNA PCR Not Detected (Not Detected) Medications Administered Current Inpatient Medications Acetaminophen (Acetaminophen 325 Mg Tab) 650 mg PO Q4H PRN PRN Reason: Moderate Pain Stop: 11/26/21 15:57 Last Admin: 10/28/21 06:32 Dose: 650 mg Documented by: Albuterol (Albuterol Hfa 8 Gm Inhaler) 2 puffs INH Q4R PRN PRN Reason: Shortness Of Breath Or Wheezing Stop: 11/28/21 14:58 Benzonatate (Benzonatate 100 Mg Capsule) 100 mg PO TID [facility] Stop: 11/26/21 15:57 Last Admin: 10/31/21 12:01 Dose: 100 mg Documented by: Guaifenesin (Guaifenesin 600 Mg Tabcr) 1,200 mg PO Q12 [facility] Stop: 11/26/21 20:59 Last Admin: 10/31/21 08:26 Dose: 1,200 mg Documented by: Heparin Sodium (Porcine) (Heparin Sod 5,000 Unit/0.5 Ml Vial) 5,000 units SQ Q8 [facility] Stop: 11/26/21 13:59 Last Admin: 10/28/21 13:34 Dose: 5,000 units Documented by: Hydrochlorothiazide (Hydrochlorothiazide 25 Mg Tab) 25 mg PO DAILY [facility] Stop: 11/27/21 08:59 Last Admin: 10/31/21 08:28 Dose: 25 mg Documented by: Remdesivir 100 mg/ Sodium (Chloride) 250 mls @ 250 mls/hr IV DAILY@1200 [facility]; Protocol Stop: 10/31/21 12:59 Last Admin: 10/31/21 12:01 Dose: 250 mls/hr Documented by: Dexamethasone 6 mg/ Syringe 1.5 mls @ 1 mls/min IV DAILY [facility] Stop: 11/05/21 09:02 Last Admin: 10/31/21 08:24 Dose: 1 mls/min Documented by: Ondansetron HCl (Ondansetron Inj 2 Mg/Ml 2 Ml Vial) 4 mg IV Q4H PRN PRN Reason: Nausea And Vomiting Stop: 11/26/21 15:57 Pantoprazole Sodium (Pantoprazole 40 Mg Tab) 40 mg PO DAILY [facility] Stop: 11/27/21 08:59 Last Admin: 10/31/21 08:29 Dose: 40 mg Documented by: Raspberry (Raspberry Syrup 5 Ml Udp) 5 ml PO Q6 [facility] Stop: 11/08/21 17:59 Last Admin: 10/31/21 12:13 Dose: 5 ml Documented by: Sertraline HCl (Sertraline Hcl 100 Mg Tablet) 100 mg PO DAILY [facility] Stop: 11/26/21 11:39 Last Admin: 10/31/21 08:29 Dose: 100 mg Documented by: Valsartan (Valsartan 80 Mg Tab) 160 mg PO DAILY [facility] Stop: 11/26/21 11:44 Last Admin: 10/31/21 08:27 Dose: 160 mg Documented by: Vancomycin HCl (Vancomycin Hcl 125 Mg/2.5ml Soln) 125 mg PO Q6 [facility] Stop: 11/08/21 17:59 Last Admin: 10/31/21 12:14 Dose: 125 mg Documented by:
[2021-10-31] MEDS: dexAMETHasone 6 MG in SYRINGE 0 ML IV SCH (08:24)
[2021-10-31] MEDS: guaiFENesin 600 MG TABCR PO SCH ×2 (08:26→20:58)
[2021-10-31] MEDS: BENZONATATE 100 MG CAPSULE PO SCH ×3 (08:26→20:58)
[2021-10-31] MEDS: VALSARTAN 80 MG TAB PO SCH (08:27)
[2021-10-31] MEDS: hydroCHLOROthiazide 25 MG TAB PO SCH (08:28)
[2021-10-31] MEDS: PANTOprazole 40 MG TAB PO SCH (08:29)
[2021-10-31] MEDS: SERTRALINE HCL 100 MG TABLET PO SCH (08:29)
[2021-10-31 08:33] LABS: Albumin Level 3.6 gm/dl (3.4-5.0); BUN Creatinine Ratio 25.4 (10-20); Calcium 8.8 mg/dl (8.5-10.1); Creatinine Clr Calc Pharmacy 152.7 ml/min; Est GFR (African American) 120.5 ml/min; Est GFR (Non-African American) 103.9 ml/min; Magnesium 2.2 mg/dl (1.8-2.4); Potassium 3.5 mmol/L (3.5-5.1)
[2021-10-31 08:36] LABS: Bilirubin,Total 1.1 mg/dl (0.2-1); Globulin 3.6 gm/dl (2.5-4.0); Phosphorus 2.8 mg/dl (2.5-4.9); Total Protein 7.2 gm/dl (6.4-8.2)
[2021-10-31] MEDS ORDERED: SODIUM CHLORIDE 0.65% NA SOLN 45 ML (OCEAN) ONE ×2 (08:39→11:44)
[2021-10-31] MEDS: REMDESIVIR 100 MG in SODIUM CHLORIDE 0.9% 230 ML IV SCH (12:01)
[2021-10-31] MEDS: SODIUM CHLORIDE 0.9% 10ML FLUSH IV SCH (12:14)
[2021-10-31] MEDS ORDERED: POTASSIUM CHLORIDE CRTAB 20 MEQ TABCR PO STA (12:56)
[2021-10-31] MEDS ORDERED: ENOXAPARIN INJ 40 MG/0.4 ML SYR SQ ONE (19:30)
[2021-11-01] MEDS: VANCOMYCIN HCL 125 MG/2.5ML SOLN PO SCH ×5 (00:32→23:28)
[2021-11-01] MEDS: RASPBERRY SYRUP 5 ML UDP PO SCH ×5 (00:32→23:28)
--- NOTE | 2021-11-01 06:59 | Hospitalist Progress Note ---
Date of Service November 01, 2021 Assessment & Plan (1) COVID-19: Plan: - Positive on admission (2) Acute respiratory failure with hypoxia: Plan: Acute respiratory failure with hypoxia COVID-19 infection -CXR:No acute chest disease. Continue remdesivir, dexamethasone CRP 0.58 Normal procalcitonin Continue supplemental oxygen as needed - currently on 2L (down from 4L) Nebs, Lasix as needed Encourage to prone Monitor LFTs LFTs trending down Leukopenia and thrombocytopenia with increased LFT Could be secondary to COVID-19 virus infection Lyme screen negative No evidence of intracytoplasmic neutrophilic inclusions to suggest anaplasmosis Hematochezia Chronic diarrhea H/O hemorrhoids as per patient Reports having colonoscopy several months ago, and diagnosed w/ hemorrhoids Hold SQ heparin Check stool for C. difficile - c. diff gene positive, c. diff tox negative Started empiric PO vanco Cont. to closely monitor Consider GI evaluation if needed Monitor CBC Patient is having BMs, no blood noted in the past few days even after being on Lovenox (3) Morbid obesity with BMI of 45.0-49.9, adult: Plan: -BMI of 49.4, counseling provided (4) Edema of both lower legs: Plan: Continue HCTZ (5) Hypokalemia: Plan: Likely secondary to GI losses, diuretics Replace electrolytes as needed (6) Leukopenia: Plan: As above (7) Thrombocytopenia: Plan: As above (8) Elevated transaminase level: Plan: Transaminitis likely secondary to Covid infection Monitor LFTs LFTs trending down Patient denies any abdominal pain Consider further evaluation if needed DVT Px: SCDs, lovenox CODE STATUS: Full code Admission and Anticipated Discharge Date Admission Date: October 27, 2021 Subjective Patient seen for shortness of breath, hypoxia due to Covid pneumonia She is sitting up in a chair in NAD, on 2L O2 via NC this a.m., however satting in higher 90s, will try to wean off oxygen and will continue to closely monitor Reports feeling better, able to speak in full sentences w/o difficulty No chest pain, abd. pain, n/v Had BM, not watery, no blood in the stool either Review of Systems Review of Systems: All systems reviewed & are unremarkable except as noted in Subjective Physical Exam Physical Exam: General Appearance: Morbidly obese F in NAD, pleasant, conversing easily Head: normocephalic, Atraumatic Eyes: normal inspection, EOMI Neck: supple Respiratory/Chest: CTAB, no wheezing Cardiovascular: S1, S2, No murmur Abdomen/GI:Soft, Non tender, Bowel sounds present Extremities/Musculoskeletal:normal inspection, no edema Neurologic/Psych:AAOX3, speech fluent, moves extremities Skin: normal color, warm Results & Data Results & Data ([facility] [place]) Vital Signs (Past 12 Hours) Vital Signs Temp Pulse Pulse Resp BP Pulse Ox 11/01/21 06:42 36.7 C 63 18 109/75 96 11/01/21 02:32 36.8 C 57 L 18 112/71 96 11/01/21 02:15 59 L 10/31/21 22:15 36.6 C 60 18 108/61 95 10/31/21 20:38 36.6 C 60 18 110/71 94 Laboratory Results 11/01/21 11/01/21 Range/Units 06:40 06:40 WBC 5.87 (4.8-10.8) K/uL RBC 4.70 (4.2-5.4) M/uL Hgb 13.8 (12.0-16.0) g/dL Hct 39.2 (37-47) % MCV 83.4 (80-100) fL MCH 29.4 (25-34) pg MCHC 35.2 (32-36) g/dL RDW Std Deviation 42.3 (36.4-46.3) fL RDW Coeff of Lorraine 13.8 (11.5-14.5) % Plt Count 157 (130-400) K/uL MPV 8.9 (7.4-10.4) fL Sodium 138 (136-145) mmol/L Potassium 3.4 L (3.5-5.1) mmol/L Chloride 107 (98-107) mmol/L Carbon Dioxide 25 (21-32) mmol/L Anion Gap 6.0 (3-11) BUN 18 (7-18) mg/dl Creatinine 0.70 (0.6-1.2) mg/dl Est Cr Clr Drug Dosing 146.2 ml/min Est GFR ( Amer) 118.7 ml/min Est GFR (Non-Af Amer) 102.5 ml/min BUN/Creatinine Ratio 26.1 H (10-20) Glucose 110 H (70-99) mg/dl Calcium 9.0 (8.5-10.1) mg/dl Phosphorus 3.4 (2.5-4.9) mg/dl Total Bilirubin 0.6 D (0.2-1) mg/dl AST 90 H (15-37) U/L ALT 126 H (12-78) Alkaline Phosphatase 75 (45-117) U/L Total Protein 7.1 (6.4-8.2) gm/dl Albumin 3.5 (3.4-5.0) gm/dl Globulin 3.6 (2.5-4.0) gm/dl Albumin/Globulin Ratio 1.0 (0.9-2) Medications Administered Current Inpatient Medications Acetaminophen (Acetaminophen 325 Mg Tab) 650 mg PO Q4H PRN PRN Reason: Moderate Pain Stop: 11/26/21 15:57 Last Admin: 10/28/21 06:32 Dose: 650 mg Documented by: Albuterol (Albuterol Hfa 8 Gm Inhaler) 2 puffs INH Q4R PRN PRN Reason: Shortness Of Breath Or Wheezing Stop: 11/28/21 14:58 Benzonatate (Benzonatate 100 Mg Capsule) 100 mg PO TID [facility] Stop: 11/26/21 15:57 Last Admin: 10/31/21 20:58 Dose: 100 mg Documented by: Enoxaparin Sodium (Enoxaparin Inj 40 Mg/0.4 Ml Syr) 40 mg SQ QAM [facility] Stop: 12/01/21 08:59 Guaifenesin (Guaifenesin 600 Mg Tabcr) 1,200 mg PO Q12 [facility] Stop: 11/26/21 20:59 Last Admin: 10/31/21 20:58 Dose: 1,200 mg Documented by: Heparin Sodium (Porcine) (Heparin Sod 5,000 Unit/0.5 Ml Vial) 5,000 units SQ Q8 [facility] Stop: 11/26/21 13:59 Last Admin: 10/28/21 13:34 Dose: 5,000 units Documented by: Hydrochlorothiazide (Hydrochlorothiazide 25 Mg Tab) 25 mg PO DAILY [facility] Stop: 11/27/21 08:59 Last Admin: 10/31/21 08:28 Dose: 25 mg Documented by: Dexamethasone 6 mg/ Syringe 1.5 mls @ 1 mls/min IV DAILY [facility] Stop: 11/05/21 09:02 Last Admin: 10/31/21 08:24 Dose: 1 mls/min Documented by: Ondansetron HCl (Ondansetron Inj 2 Mg/Ml 2 Ml Vial) 4 mg IV Q4H PRN PRN Reason: Nausea And Vomiting Stop: 11/26/21 15:57 Pantoprazole Sodium (Pantoprazole 40 Mg Tab) 40 mg PO DAILY [facility] Stop: 11/27/21 08:59 Last Admin: 10/31/21 08:29 Dose: 40 mg Documented by: Raspberry (Raspberry Syrup 5 Ml Udp) 5 ml PO Q6 [facility] Stop: 11/08/21 17:59 Last Admin: 11/01/21 05:44 Dose: 5 ml Documented by: Sertraline HCl (Sertraline Hcl 100 Mg Tablet) 100 mg PO DAILY [facility] Stop: 11/26/21 11:39 Last Admin: 10/31/21 08:29 Dose: 100 mg Documented by: Valsartan (Valsartan 80 Mg Tab) 160 mg PO DAILY [facility] Stop: 11/26/21 11:44 Last Admin: 10/31/21 08:27 Dose: 160 mg Documented by: Vancomycin HCl (Vancomycin Hcl 125 Mg/2.5ml Soln) 125 mg PO Q6 [facility] Stop: 11/08/21 17:59 Last Admin: 11/01/21 05:44 Dose: 125 mg Documented by:
[2021-11-01 07:05] LABS: Hematocrit (blood only) 39.2 % (37-47); Hemoglobin 13.8 g/dL (12.0-16.0); Mean Corpuscular Hemoglobin 29.4 pg (25-34); Mean Corpuscular Hgb Conc 35.2 g/dL (32-36); Mean Corpuscular Volume 83.4 fL (80-100); Mean Platelet Volume 8.9 fL (7.4-10.4); Platelet Count 157 K/uL (130-400); RDW Coefficient of Variation 13.8 % (11.5-14.5); RDW Standard Deviation 42.3 fL (36.4-46.3); White Blood Count 5.87 K/uL (4.8-10.8)
[2021-11-01 07:42] LABS: Albumin Level 3.5 gm/dl (3.4-5.0); BUN Creatinine Ratio 26.1 (10-20); Creatinine Clr Calc Pharmacy 146.2 ml/min; Est GFR (African American) 118.7 ml/min; Est GFR (Non-African American) 102.5 ml/min; Potassium 3.4 mmol/L (3.5-5.1)
[2021-11-01] MEDS: guaiFENesin 600 MG TABCR PO SCH ×2 (08:23→20:24)
[2021-11-01] MEDS: dexAMETHasone 6 MG in SYRINGE 0 ML IV SCH (08:24)
[2021-11-01] MEDS: BENZONATATE 100 MG CAPSULE PO SCH ×3 (08:27→21:46)
[2021-11-01] MEDS: PANTOprazole 40 MG TAB PO SCH (08:27)
[2021-11-01] MEDS: ENOXAPARIN INJ 40 MG/0.4 ML SYR SQ SCH (08:27)
[2021-11-01] MEDS: SERTRALINE HCL 100 MG TABLET PO SCH (08:28)
[2021-11-01] MEDS: VALSARTAN 80 MG TAB PO SCH (08:28)
[2021-11-01 08:29] LABS: Bilirubin,Total 0.6 mg/dl (0.2-1); Globulin 3.6 gm/dl (2.5-4.0); Phosphorus 3.4 mg/dl (2.5-4.9); Total Protein 7.1 gm/dl (6.4-8.2)
[2021-11-01] MEDS ORDERED: POTASSIUM CHLORIDE CRTAB 20 MEQ TABCR PO STA (08:43)
[2021-11-01] MEDS: hydroCHLOROthiazide 25 MG TAB PO SCH (09:56)
[2021-11-01] MEDS ORDERED: MICONAZOLE NITRATE POWDER 43 GM EXT PRN (12:05)
[2021-11-01] MEDS ORDERED: POTASSIUM CHLORIDE CRTAB 20 MEQ TABCR PO ONE (14:00)
[2021-11-02] MEDS: RASPBERRY SYRUP 5 ML UDP PO SCH (05:38)
[2021-11-02] MEDS: VANCOMYCIN HCL 125 MG/2.5ML SOLN PO SCH (05:38)
--- NOTE | 2021-11-02 07:09 | Hospitalist Progress Note ---
Date of Service November 02, 2021 Assessment & Plan (1) COVID-19: Plan: - Positive on admission (2) Acute respiratory failure with hypoxia: Plan: Acute respiratory failure with hypoxia COVID-19 infection -CXR:No acute chest disease. Continue remdesivir, dexamethasone CRP 0.58 Normal procalcitonin Continue supplemental oxygen as needed - currently on 2L (down from 4L) Nebs, Lasix as needed Encourage to prone Monitor LFTs LFTs trending down Leukopenia and thrombocytopenia with increased LFT Could be secondary to COVID-19 virus infection Lyme screen negative No evidence of intracytoplasmic neutrophilic inclusions to suggest anaplasmosis Hematochezia Chronic diarrhea H/O hemorrhoids as per patient Reports having colonoscopy several months ago, and diagnosed w/ hemorrhoids Hold SQ heparin Check stool for C. difficile - c. diff gene positive, c. diff tox negative Started empiric PO vanco Cont. to closely monitor Consider GI evaluation if needed Monitor CBC Patient is having BMs, no blood noted in the past few days even after being on Lovenox (3) Morbid obesity with BMI of 45.0-49.9, adult: Plan: -BMI of 49.4, counseling provided (4) Edema of both lower legs: Plan: Continue HCTZ (5) Hypokalemia: Plan: Likely secondary to GI losses, diuretics Replace electrolytes as needed DC on supplement, recommend to have K level rechecked as outpt (6) Leukopenia: Plan: As above (7) Thrombocytopenia: Plan: As above (8) Elevated transaminase level: Plan: Transaminitis likely secondary to Covid infection Monitor LFTs LFTs trending down Patient denies any abdominal pain Consider further evaluation if needed DVT Px: SCDs, lovenox CODE STATUS: Full code Admission and Anticipated Discharge Date Admission Date: October 27, 2021 Subjective Patient seen for shortness of breath, hypoxia due to Covid pneumonia She is currently on RA, able to wean off oxygen yesterday afternoon Currently satting 95% Reports feeling well, no new complaints, speaks in full sentences w/o difficulty No chest pain, abd. pain, n/v Review of Systems Review of Systems: All systems reviewed & are unremarkable except as noted in Subjective Physical Exam Physical Exam: General Appearance: Morbidly obese F in NAD, pleasant, conversing easily Head: normocephalic, Atraumatic Eyes: normal inspection, EOMI Neck: supple Respiratory/Chest: CTAB, no wheezing Cardiovascular: S1, S2, No murmur Abdomen/GI:Soft, Non tender, Bowel sounds present Extremities/Musculoskeletal:normal inspection, no edema Neurologic/Psych:AAOX3, speech fluent, moves extremities Skin: normal color, warm Results & Data Results & Data ([facility]) Vital Signs (Past 12 Hours) Vital Signs Temp Pulse Pulse Resp BP BP Pulse Ox 11/02/21 02:27 36.7 C 63 18 108/66 95 11/01/21 23:20 36.8 C 62 18 116/70 94 11/01/21 22:20 61 11/01/21 19:37 36.6 C 64 18 104/65 94 Laboratory Results 11/02/21 11/02/21 Range/Units 08:13 08:13 WBC 7.29 (4.8-10.8) K/uL RBC 5.08 (4.2-5.4) M/uL Hgb 15.1 (12.0-16.0) g/dL Hct 43.2 (37-47) % MCV 85.0 (80-100) fL MCH 29.7 (25-34) pg MCHC 35.0 (32-36) g/dL RDW Std Deviation 42.8 (36.4-46.3) fL RDW Coeff of Lorraine 13.8 (11.5-14.5) % Plt Count 199 (130-400) K/uL MPV 8.9 (7.4-10.4) fL Sodium 139 (136-145) mmol/L Potassium 3.5 (3.5-5.1) mmol/L Chloride 105 (98-107) mmol/L Carbon Dioxide 25 (21-32) mmol/L Anion Gap 8.0 (3-11) BUN 17 (7-18) mg/dl Creatinine 0.71 (0.6-1.2) mg/dl Est Cr Clr Drug Dosing 144.1 ml/min Est GFR ( Amer) 116.7 ml/min Est GFR (Non-Af Amer) 100.7 ml/min BUN/Creatinine Ratio 24.5 H (10-20) Glucose 107 H (70-99) mg/dl Calcium 9.2 (8.5-10.1) mg/dl Total Bilirubin 0.7 (0.2-1) mg/dl AST 105 H (15-37) U/L ALT 148 H (12-78) Alkaline Phosphatase 80 (45-117) U/L Total Protein 7.6 (6.4-8.2) gm/dl Albumin 3.7 (3.4-5.0) gm/dl Globulin 3.9 (2.5-4.0) gm/dl Albumin/Globulin Ratio 0.9 (0.9-2) Medications Administered Current Inpatient Medications Acetaminophen (Acetaminophen 325 Mg Tab) 650 mg PO Q4H PRN PRN Reason: Moderate Pain Stop: 11/26/21 15:57 Last Admin: 10/28/21 06:32 Dose: 650 mg Documented by: Albuterol (Albuterol Hfa 8 Gm Inhaler) 2 puffs INH Q4R PRN PRN Reason: Shortness Of Breath Or Wheezing Stop: 11/28/21 14:58 Benzonatate (Benzonatate 100 Mg Capsule) 100 mg PO TID [facility] Stop: 11/26/21 15:57 Last Admin: 11/01/21 21:46 Dose: 100 mg Documented by: Enoxaparin Sodium (Enoxaparin Inj 40 Mg/0.4 Ml Syr) 40 mg SQ QAM AZALIA Stop: 12/01/21 08:59 Last Admin: 11/01/21 08:27 Dose: Not Given Documented by: Guaifenesin (Guaifenesin 600 Mg Tabcr) 1,200 mg PO Q12 AZALIA Stop: 11/26/21 20:59 Last Admin: 11/01/21 20:24 Dose: 1,200 mg Documented by: Heparin Sodium (Porcine) (Heparin Sod 5,000 Unit/0.5 Ml Vial) 5,000 units SQ Q8 AZALIA Stop: 11/26/21 13:59 Last Admin: 10/28/21 13:34 Dose: 5,000 units Documented by: Hydrochlorothiazide (Hydrochlorothiazide 25 Mg Tab) 25 mg PO DAILY AZALIA Stop: 11/27/21 08:59 Last Admin: 11/01/21 09:56 Dose: 25 mg Documented by: Dexamethasone 6 mg/ Syringe 1.5 mls @ 1 mls/min IV DAILY AZALIA Stop: 11/05/21 09:02 Last Admin: 11/01/21 08:24 Dose: 1 mls/min Documented by: Miconazole Nitrate (Miconazole Nitrate Powder 43 Gm) 1 appln EXT PRN PRN PRN Reason: Affected Skin Folds Stop: 12/01/21 12:04 Ondansetron HCl (Ondansetron Inj 2 Mg/Ml 2 Ml Vial) 4 mg IV Q4H PRN PRN Reason: Nausea And Vomiting Stop: 11/26/21 15:57 Pantoprazole Sodium (Pantoprazole 40 Mg Tab) 40 mg PO DAILY [facility] Stop: 11/27/21 08:59 Last Admin: 11/01/21 08:27 Dose: 40 mg Documented by: Raspberry (Raspberry Syrup 5 Ml Udp) 5 ml PO Q6 [facility] Stop: 11/08/21 17:59 Last Admin: 11/02/21 05:38 Dose: 5 ml Documented by: Sertraline HCl (Sertraline Hcl 100 Mg Tablet) 100 mg PO DAILY [facility] Stop: 11/26/21 11:39 Last Admin: 11/01/21 08:28 Dose: 100 mg Documented by: Valsartan (Valsartan 80 Mg Tab) 160 mg PO DAILY [facility] Stop: 11/26/21 11:44 Last Admin: 11/01/21 08:28 Dose: 160 mg Documented by: Vancomycin HCl (Vancomycin Hcl 125 Mg/2.5ml Soln) 125 mg PO Q6 [facility] Stop: 11/08/21 17:59 Last Admin: 11/02/21 05:38 Dose: 125 mg Documented by:
[2021-11-02 08:37] LABS: Hematocrit (blood only) 43.2 % (37-47); Hemoglobin 15.1 g/dL (12.0-16.0); Mean Corpuscular Hemoglobin 29.7 pg (25-34); Mean Platelet Volume 8.9 fL (7.4-10.4); Platelet Count 199 K/uL (130-400); RDW Coefficient of Variation 13.8 % (11.5-14.5); RDW Standard Deviation 42.8 fL (36.4-46.3); Red Blood Count 5.08 M/uL (4.2-5.4); White Blood Count 7.29 K/uL (4.8-10.8)
[2021-11-02] MEDS: dexAMETHasone 6 MG in SYRINGE 0 ML IV SCH (09:00)
[2021-11-02] MEDS: VALSARTAN 80 MG TAB PO SCH (09:02)
[2021-11-02] MEDS: ENOXAPARIN INJ 40 MG/0.4 ML SYR SQ SCH (09:02)
[2021-11-02] MEDS: PANTOprazole 40 MG TAB PO SCH (09:02)
[2021-11-02] MEDS: guaiFENesin 600 MG TABCR PO SCH (09:02)
[2021-11-02] MEDS: hydroCHLOROthiazide 25 MG TAB PO SCH (09:02)
[2021-11-02] MEDS: BENZONATATE 100 MG CAPSULE PO SCH (09:02)
[2021-11-02] MEDS: SERTRALINE HCL 100 MG TABLET PO SCH (09:02)
[2021-11-02 09:04] LABS: Albumin Level 3.7 gm/dl (3.4-5.0); BUN Creatinine Ratio 24.5 (10-20); Calcium 9.2 mg/dl (8.5-10.1); Creatinine Clr Calc Pharmacy 144.1 ml/min; Est GFR (African American) 116.7 ml/min; Est GFR (Non-African American) 100.7 ml/min; Potassium 3.5 mmol/L (3.5-5.1)
[2021-11-02 09:07] LABS: Albumin Globulin Ratio 0.9 (0.9-2); Bilirubin,Total 0.7 mg/dl (0.2-1); Globulin 3.9 gm/dl (2.5-4.0); Total Protein 7.6 gm/dl (6.4-8.2)
--- NOTE | 2021-11-02 09:13 | Discharge Summary ---
Date of Service November 02, 2021 Admission HPI Per Admitting Provider This is a 46 Yo F with PMHx of HTN and morbid obesity with BMI of 49.4. She presents to the hospital this morning due to worsening cough. She states "I think would be better" - reports having a fever, cough, sputum which is green, weakness, vomiting, pain in lower back down to her legs since last Wednesday when symptoms started. She does not wear any O2 at baseline at home. She has been using mucinex, tylenol, over the counter medications. She lives at home with her daughter who is not symptomatic. Her mother was recently admitting in the hospital with COVID, her father was positive but was living with her at home and she has been caring for both of them herself but they are now feeling better. Pt is not vaccinated and neither were her family members. Her daughter at home is also not vaccinated. She has NOT taken her home medications this morning. Admission Exam Per Admitting Provider Constitutional: well developed, well nourished, + ill appearing and + obese Eyes: PERRL, conjunctivae normal, anicteric sclerae ENMT: external ear and nose normal, oropharynx normal Neck: trachea midline, no thyromegaly Respiratory: + respiratory distress (Minimal distress at rest) Auscultation: + diminished lung sounds and + crackles (Minimal crackles at the bases) Cardiovascular: Rate/Rhythm: regular rate and regular rhythm; not tachycardic Heart Sounds: normal S1 and normal S2; no murmur Extremities: + edema (Trace edema bilaterally) Gastrointestinal (Abdomen): Inspection/Auscultation: normal bowel sounds; abdomen not distended Percussion/Palpation: abdomen soft; abdomen nontender Musculoskeletal: No acute arthritis in any joint Skin: Does not have any skin rash Neurologic: Alert, awake and oriented x3. No focal sensory and motor deficit appreciated Psychiatric: A+Ox3, euthymic affect Lymphatic: no cervical or axillary lymphadenopathy Principal Diagnosis Acute respiratory failure with hypoxia COVID-19 infection Discharge Exam General Appearance: Morbidly obese F in NAD, pleasant, conversing easily Head: normocephalic, Atraumatic Eyes: normal inspection, EOMI Neck: supple Respiratory/Chest: CTAB, no wheezing Cardiovascular: S1, S2, No murmur Abdomen/GI:Soft, Non tender, Bowel sounds present Extremities/Musculoskeletal:normal inspection, no edema Neurologic/Psych:AAOX3, speech fluent, moves extremities Skin: normal color, warm Discharge Data Allergies Allergy/AdvReac Type Severity Reaction Status Date / Time No Known Allergies Allergy Unverified 10/27/21 10:19 Hospital Course (1) COVID-19: - Positive on admission (2) Acute respiratory failure with hypoxia: Acute respiratory failure with hypoxia COVID-19 infection -CXR:No acute chest disease. Continue remdesivir, dexamethasone CRP 0.58 Normal procalcitonin Continue supplemental oxygen as needed - currently on 2L (down from 4L) Nebs, Lasix as needed Encourage to prone Monitor LFTs LFTs trending down Leukopenia and thrombocytopenia with increased LFT Could be secondary to COVID-19 virus infection Lyme screen negative No evidence of intracytoplasmic neutrophilic inclusions to suggest anaplasmosis Hematochezia Chronic diarrhea H/O hemorrhoids as per patient Reports having colonoscopy several months ago, and diagnosed w/ hemorrhoids Hold SQ heparin Check stool for C. difficile - c. diff gene positive, c. diff tox negative Started empiric PO vanco Cont. to closely monitor Consider GI evaluation if needed Monitor CBC Patient is having BMs, no blood noted in the past few days even after being on Lovenox (3) Morbid obesity with BMI of 45.0-49.9, adult: -BMI of 49.4, counseling provided (4) Edema of both lower legs: Continue HCTZ (5) Hypokalemia: Likely secondary to GI losses, diuretics Replace electrolytes as needed DC on supplement, recommend to have K level rechecked as outpt (6) Leukopenia: As above (7) Thrombocytopenia: As above (8) Elevated transaminase level: Transaminitis likely secondary to Covid infection Monitor LFTs LFTs trending down Patient denies any abdominal pain Consider further evaluation if needed Total Time Total Time Spent Total Time Spent (In Minutes): 40 Discharge Plan Discharge Items Patient Disposition: Home - Self-Care Reason For Visit: COVID 19,ACUTE RESP FAILURE WITH HYPOXIA Discharge Diagnosis: Acute respiratory failure with hypoxia COVID-19 infection Activity: Per Instructions section Non-emergency contact: Primary Care Provider Call non-emergency contact if: you have any medication questions and your symptoms worsen Follow-up/Referrals: Aj Cool MD [Primary Care Provider] - Diet: Regular Addtl Attending Provider Instructions: Follow-up with your primary care doctor, within 1 to 2 weeks. This may be a telemedicine visit. Finish antibiotic, vancomycin, for C. difficile colitis. Recommend to use guaifenesin for next few days. It is recommended that you isolate yourself for next 10 days, and monitor your symptoms of Covid, such as fever, cough, oxygen saturation. If you do not have any symptoms for next 10 days, you should be okay to stop the isolation, however it is still recommended that you wear a mask if you are around other people. It is recommended that you get Covid vaccination as soon as you are able to. Your potassium has been on the lower side while you were in the hospital, supplement was prescribed, recommend to have your potassium level checked with your primary care physician. Good luck and take care of yourself! Pending Studies at Discharge: No Stand-Alone Forms: [facility] [employer], Smoking Cessation Medications and DC Order Prescriptions: New vancomycin 125 mg capsule 125 mg PO Q6H 7 Days Qty: 28 RF: 0 guaifenesin [Mucinex] 600 mg Tablet Extended Release 12hr 1,200 mg PO Q12 5 Days Qty: 20 RF: 0 Desenex 2 % Powder 1 applic EXT PRN PRN (Reason: rash) Qty: 43 RF: 0 potassium chloride 10 mEq capsule, extended release 10 meq PO DAILY Qty: 14 RF: 0 Continued sertraline 100 mg Tablet 100 mg PO DAILY RF: 0 hydrochlorothiazide 25 mg Tablet 25 mg PO DAILY RF: 0 valsartan 160 mg Tablet 160 mg PO DAILY RF: 0 omeprazole magnesium [Prilosec OTC] 20 mg Tablet,Delayed Release (Dr/Ec) 20 mg PO DAILY RF: 0 Discharge Orders: Discharge Order (Routine); Ordered 11/02/21 Ordered By: Rick Lr/Other Patient Handouts: 5 Steps for Eating Healthier Admission Data Admit Date/Time: 10/27/21 11:36 Attending Provider: Rick Branch Admit Provider: Bonita Amador Primary Care Provider: Aj Cool Other Providers: Te Winters
[2021-11-02] MEDS ORDERED: POTASSIUM CHLORIDE CRTAB 20 MEQ TABCR PO STA (10:45)
== END 2021-11-02 11:30 | disposition home or self-care (01) | DRG 177 ==
LOC: ED 07:07 → MERGE 07:07 → SUATTDRO 11:36 → EDINP 11:36 → 2N 10-29 15:52
DX: K92.1 Melena; R19.7 Diarrhea, unspecified; D69.6 Thrombocytopenia, unspecified; M54.9 Dorsalgia, unspecified; I10 Essential (primary) hypertension; J96.01 Acute respiratory failure with hypoxia; J12.82 Pneumonia due to coronavirus disease 2019; U07.1 COVID-19; E66.01 Morbid (severe) obesity due to excess calories; E87.6 Hypokalemia; Z68.42 Body mass index [BMI] 45.0-49.9, adult; R00.0 Tachycardia, unspecified